=== PATIENT | male | born 1980 | race Caucasian/White ===

== ENCOUNTER → 2021-01-13 15:50 | Outpatient (BNVA) | payer OTHER, SELFPAY | PROVIDERS: PCP Family Medicine; Visit Provider Family Medicine | DX: Z13.6 Encounter for screening for cardiovascular disorders (principal); R03.0 Elevated blood-pressure reading, without diagnosis of hypertension; F33.1 Major depressive disorder, recurrent, moderate | CPT/HCPCS: 80053; 80061; 85025 ==

== ENCOUNTER → 2022-10-10 16:22 | Outpatient (BNVA) | payer OTHER, MEDICAID, SELFPAY | PROVIDERS: PCP Family Medicine; Visit Provider Emergency Medicine | DX: S61.412A Laceration without foreign body of left hand, initial encounter (principal); S61.419A Laceration without foreign body of unspecified hand, initial encounter; S69.90XA Unspecified injury of unspecified wrist, hand and finger(s), initial encounter; X58.XXXA Exposure to other specified factors, initial encounter | CPT/HCPCS: 73130 ==

== ENCOUNTER → 2022-11-12 08:39 | Outpatient (BNVA) | payer MEDICAID, SELFPAY | PROVIDERS: PCP Family Medicine; Visit Provider Family Medicine | DX: I10 Essential (primary) hypertension (principal); R53.83 Other fatigue | CPT/HCPCS: 80053; 80061; 82043; 84403; 84439; 84443; 85025 ==

== ENCOUNTER → 2023-05-20 10:53 | Outpatient (BNVA) | payer OTHER, MEDICAID, SELFPAY | PROVIDERS: PCP Family Medicine; Visit Provider Family Medicine | DX: R94.6 Abnormal results of thyroid function studies (principal); N52.8 Other male erectile dysfunction | CPT/HCPCS: 84403; 84439; 84443 ==

== ENCOUNTER → 2023-10-29 11:11 | Outpatient (BNVA) | payer OTHER, MEDICAID, SELFPAY | PROVIDERS: PCP Family Medicine; Visit Provider Student in an Organized Health Care Education/Training Program | DX: M16.11 Unilateral primary osteoarthritis, right hip | CPT/HCPCS: 73522 ==

== ENCOUNTER → 2023-12-31 08:33 | Outpatient (BNVA) | payer OTHER, MEDICAID, SELFPAY | PROVIDERS: PCP Family Medicine; Visit Provider Family Medicine | DX: Z86.39 Personal history of other endocrine, nutritional and metabolic disease (principal); I10 Essential (primary) hypertension | CPT/HCPCS: 80053; 80061; 84403; 84439; 84443; 85025; 86376 ==

== ENCOUNTER → 2024-03-06 10:45 | Outpatient (BNVA) | payer OTHER, MEDICAID, SELFPAY | PROVIDERS: PCP Family Medicine; Visit Provider Student in an Organized Health Care Education/Training Program | DX: M25.551 Pain in right hip (principal); M16.11 Unilateral primary osteoarthritis, right hip; M54.50 Low back pain, unspecified | CPT/HCPCS: 73502 ==

== ENCOUNTER → 2024-03-31 08:58 | Outpatient (BNVA) | payer OTHER, MEDICAID, SELFPAY | PROVIDERS: PCP Family Medicine; Referring Provider Student in an Organized Health Care Education/Training Program; Visit Provider Orthopaedic Surgery | DX: M54.50 Low back pain, unspecified (principal) | CPT/HCPCS: 72110 ==

== ENCOUNTER 2024-04-02 08:33 | Outpatient (CLI) | payer MEDICAID, SELFPAY ==
--- NOTE | 2024-04-02 08:45 | MR_ITS ---
WS: [id number] MRI LUMBAR SPINE NONCONTRAST TECHNIQUE: Sagittal T1, T2 and STIR imaging. Axial T1 and T2 imaging. CLINICAL INFORMATION: lumbar pain COMPARISON: None. FINDINGS: 6 nonrib-bearing lumbar vertebral bodies labeled L1-L6 for the purposes of this dictation.. Counting performed from the craniocervical junction. Mild lumbar curve. No acute compression. Pedicle screw fixation L5-L6 with laminectomy defects. Prominent central disc protrusion C5-6 with slight indentation cervical cord. Mild to moderate centra l canal stenosis. Recommend cervical spine MRI. L1-L2: Shallow central disc protrusion. Spinal canal and foramen are patent. L2-L3: Mild facet arthropathy. Spinal canal and foramen are patent. L3-L4: Slight retrolisthesis. Mild annular bulging with slight effacement of the ventral thecal sac. Slight impingement traversing L4 nerve roots bilaterally. Moderate facet arthropathy. Mild bilateral foraminal narrowing. L4-L5: Mild annular bulging with mild to moderate central canal stenosis. Impingement subarticular re cess bilaterally. Moderate facet arthropathy. Slight retrolisthesis. Mild bilateral foraminal narrowi ng L5- L6: Prior postoperative changes pedicle screw fixation with laminectomy defects. Spinal canal and foramen are patent. Clustering of the cauda equina nerve rootlets at this level can be seen with olamide chnoiditis. L6-S1: Mild annular bulging. Slight effacement of the ventral thecal sac. Moderate facet arthropathy. Spinal canal and foramen are patent MR/MR lumbar spine wo con* [id number] IMPRESSION: 1. 6 nonrib-bearing lumbar vertebral bodies labeled 1 through 6 for the purpos es of this dictation. Counting is performed from the craniocervical junction. R ecommend plain film correlation prior to surgical intervention. 2. Prominent central disc protrusion C5-6 on the school age teacher imaging with impingemen t on the cervical cord. Mild to moderate central canal stenosis. Recommend furt her evaluation with cervical spine MRI. 3. Pedicle screw fixation laminectomy defects L5 and L6. Spinal canal and fora men are patent at this level. 4. Clumping of the cauda equina nerve rootlets at L5 suspicious for arachnoidi tis. 5. Mild to moderate central canal stenosis L4-5 due to slight retrolisthesis i n combination with disc bulging and facet arthropathy ligamentum flavum hypertr ophy. Mild bilateral L4-5 foraminal narrowing with slight contact of the exitin g L4 nerve roots. 6. Mild annular bulge L3-4 with slight retrolisthesis. Mild bilateral foramina l narrowing at this level. 7. Shallow central disc bulging L1-2.
== END 2024-04-02 08:34 | disposition home or self-care (01) ==
LOC: RAD 08:34
PROVIDERS: PCP Family Medicine; Visit Provider Orthopaedic Surgery
DX: M50.222 Other cervical disc displacement at C5-C6 level (principal); M47.896 Other spondylosis, lumbar region; M48.061 Spinal stenosis, lumbar region without neurogenic claudication; M96.1 Postlaminectomy syndrome, not elsewhere classified; G83.4 Cauda equina syndrome; M47.898 Other spondylosis, sacral and sacrococcygeal region
CPT/HCPCS: 72148

== ENCOUNTER → 2024-04-03 08:15 | Outpatient (BNVA) | payer MEDICAID, SELFPAY | PROVIDERS: PCP Family Medicine; Visit Provider Student in an Organized Health Care Education/Training Program | DX: M16.11 Unilateral primary osteoarthritis, right hip (principal) | CPT/HCPCS: 77002 ==

== ENCOUNTER → 2024-06-19 08:38 | Outpatient (BNVA) | payer MEDICAID, SELFPAY | PROVIDERS: PCP Family Medicine; Visit Provider Family Medicine | DX: R79.89 Other specified abnormal findings of blood chemistry (principal) | CPT/HCPCS: 80048; 84403 ==

== ENCOUNTER 2024-08-10 11:32 | Outpatient (CLI) | payer MEDICAID, SELFPAY | END 2024-08-10 11:33 | disposition home or self-care (01) | LOC: SLEEP 11:37 | PROVIDERS: PCP Family Medicine; Visit Provider Family Medicine | DX: G47.33 Obstructive sleep apnea (adult) (pediatric) (principal); G47.36 Sleep related hypoventilation in conditions classified elsewhere | CPT/HCPCS: G0399 ==

== ENCOUNTER → 2024-09-04 11:34 | Outpatient (BNVA) | payer MEDICAID, SELFPAY | PROVIDERS: PCP Family Medicine; Visit Provider Student in an Organized Health Care Education/Training Program | DX: M16.11 Unilateral primary osteoarthritis, right hip (principal) | CPT/HCPCS: 77002 ==

== ENCOUNTER → 2024-12-09 08:04 | Outpatient (BNVA) | payer MEDICAID, SELFPAY | PROVIDERS: PCP Family Medicine; Visit Provider Student in an Organized Health Care Education/Training Program | DX: M16.11 Unilateral primary osteoarthritis, right hip (principal); Z01.818 Encounter for other preprocedural examination | CPT/HCPCS: 36415; 73502; 80053; 81003; 85025 ==

== ENCOUNTER 2024-12-31 08:01 | Outpatient (CLI) | payer MEDICAID, SELFPAY ==
--- NOTE | 2024-12-31 08:00 | CT_ITS ---
WS: [id number] CT RIGHT hip for LUDMILA procedure HISTORY: pre operative scan- right DEEDEE Date: 12/31/2024 8:19 AM COMPARISON: None available. TECHNIQUE: Protocol for LUDMILA total hip replacement has been obtained. This includes axial imaging from the hip joint through the knee joint. DLP: [id number] FINDINGS: Postoperative changes lower lumbar spine. Advanced degenerative arthritis RIGHT hip with joint space narrowing. Hypertrophic changes about the acetabulum and femoral head. Associated sclerosis. Moderate degenerative narrowing of the LEFT hip. CT/CT hip RT [facility] [id number] IMPRESSION: CT imaging provided for [facility] robotic total hip replacement.
--- NOTE | 2024-12-31 13:34 | MR_ITS ---
WS: [id number] MRI BRAIN WITH HIGH-RESOLUTION IMAGING THROUGH THE INTERNAL AUDITORY CANALS WITHOUT AND WITH CONTRAST HISTORY: SENSORINEURAL HEARING LOSS,BILATERAL COMPARISON: None available. TECHNIQUE: Multiplanar, multisequence imaging is performed through the brain. Additional 3 mm imaging performed in multiple planes through the internal auditory canal. Postcontrast imaging with 20 ml's of MultiHance. No acute intracranial hemorrhage, midline shift, edema or mass effect. No prior infarct. No significant volume loss or atrophy. No hippocampal atrophy. Ventricles and extra-axial spaces are normal. Mild ectopia of the cerebellar tonsils. Tiny nonenhancing focus in the central pituitary gland measures 2.2 mm. Suspect pituitary microadenoma. Internal and external auditory canals: Unremarkable. Cranial nerves VII and VIII complexes: Unremarkable. No enhancement or mass. Cerebellopontine angles: Normal. Paranasal sinuses: Normal. Mastoid air cells: Normal. Calvarium and scalp: Normal. Visualized nightmute of Velázquez and dural venous sinuses demonstrate no abnormality. MR/MR iac's wo/w con* [id number] IMPRESSION: 1. No mass at the cerebellopontine angle. No mass or signal abnormality along the internal auditory canals. 2. No cerebral or cerebellar atrophy or prior infarct. 3. Highly suspicious for 2.2 mm pituitary microadenoma. Consider follow-up ded icated MRI pituitary gland.
[2024-12-31] MEDS: gadobenate dimeglumine 20 mL vial IV (14:21)
== END 2024-12-31 08:02 | disposition home or self-care (01) ==
LOC: RAD 08:01
PROVIDERS: PCP Family Medicine; Visit Provider Nurse Practitioner Family
DX: H90.3 Sensorineural hearing loss, bilateral (principal)
CPT/HCPCS: 70553; 73700

== ENCOUNTER → 2025-01-04 05:52 | Day surgery (SDC) | payer MEDICAID, SELFPAY ==
[2025-01-04 06:09] VITALS: BP 119/85; PULSE 77; RESP 18; TEMP 36.6; O2SAT 97
[2025-01-04 06:13] VITALS: BMI 31.4
[2025-01-04] MEDS: acetaminophen 1,000 MG/100 ML PIGGYBACK 400 MG IV (06:35)
[2025-01-04 06:41] LABS: Hematocrit 43.5 % (37-53); Hemoglobin 15.30 g/dL (11.27-16.99); Mean Corpuscular HGB Conc 35.2 g/dL (30-55); Mean Corpuscular Hemoglobin 30.9 pg (27-33); Mean Corpuscular Volume 87.9 fl (82-101); Nucleated Red Blood Cells % 0 %; Platelet Count 243 10^3/cmm (157-399); Red Blood Count 4.95 10^6/uL (3.85-5.65); White Blood Count 7.79 10^3/uL (3.29-11.43)
[2025-01-04 06:50] LABS: Anion Gap 15.8 (5-19); Blood Urea Nitrogen 17 mg/dL (6-20); Calcium 8.9 mg/dL (8.5-10.5); Carbon Dioxide 23 mmol/L (22-29); Chloride 108 mmol/L (98-107); Creatinine Clr Calc Pharmacy 143.3387; Glucose 99 mg/dL (65-115); Osmolality Calculated 298 mOsm/kg (285-295); Potassium 3.8 mmol/L (3.5-5.1); Sodium 143 mmol/L (136-145)
--- NOTE | 2025-01-04 07:07 | P.MISC_ITS ---
Miscellaneous Note Purpose of Documentation: Patient at this point in time seen evaluated by anesthesia this morning. Barbara fabian does take kratom at baseline. He took it last night. After discussion with anesthesia and possible increased risks associated with kratom they have elected to proceed to hold off on the surgery today and patient will work with his primary on tapering off of this and then proceed with the total hip arthroplasty. At this point in time my office will be in touch with him on the appropriate timeline of discontinuing the medication completely prior to surgical intervention as well as with the next rescheduled planned date will be. Patient at this point in time understands and agrees with current plan. All questions answered at this time. Yonathan Short, DO Orthopedic surgery
--- NOTE | 2025-01-04 07:07 | PC.NURSE ---
0707: Pt prepped for surgery as per normal. Patient spoke with anesthesia regarding the side effects of an herbal supplement he takes several times daily. patient opted to to leave and then reschedule due to possible interactions with other medications used while in procedure
--- NOTE | 2025-01-04 08:04 | P.MISC_ITS ---
Miscellaneous Note Note: Patient states he uses Kratom approximately every 6 to 8 8 hrs. Last use was previous night. Review of kratom shows no official guidelines regarding perioperative use given its rarity. A few case reports in surgical patients using Kratom have demonstrated resistance to anesthestics, difficult p ostoperative pain control, refractory intra-operative hypertension requiring nicardipine or esmolol infusions, as well as emergence delirium. Recommendations from case reports included using regional anesthesia when able, mulitmodal pain control, and holding or tapering off of kratom pre-operativeley. After discussion with patient regarding possible risks, joint decision was made to reschedule surgery to allow for pre-operative kratom cessation. I am unable to find appropriate recommendations regarding when to hold the kratom, so will refer to patient's PCP for further management to take into consideration the possibilty of withdrawal symptoms as well.
== END ==
LOC: OR 05:53
PROVIDERS: Physician Assistant; PCP Family Medicine; Visit Provider Student in an Organized Health Care Education/Training Program
DX: Z53.8 Procedure and treatment not carried out for other reasons (principal)
CPT/HCPCS: 36415; 80048; 85025; 86850; 86900; J0131; J1885; J2250; J2704; J7030; J9999

== ENCOUNTER → 2025-02-03 12:18 | Outpatient (BNVA) | payer MEDICAID, SELFPAY | PROVIDERS: PCP Family Medicine; Visit Provider Student in an Organized Health Care Education/Training Program | DX: Z01.818 Encounter for other preprocedural examination (principal) | CPT/HCPCS: 36415; 80053; 81001; 85025 ==

== ENCOUNTER 2025-02-18 14:14 | Observation (INO) | payer MEDICAID, SELFPAY ==
[2025-02-18] VITALS (28 sets, daily range): BP systolic 87–144; BP diastolic 46–88; PULSE 68–92; RESP 12–22; TEMP 36.2–37.2; O2SAT 94–99; BMI 31.4
--- NOTE | 2025-02-18 06:41 | ANES.PREANE2 ---
Pre-Anesthetic Assessment Height/Weight: Height 1.8 m Operation Date: 02/18/25 07:00 Proposed Procedures p Tanner Robot Anterior Hip Arthroplasty(Right) - Yonathan Short DO Familial anesthetic complications: none Was Beta Bran taken within 24 hours: Yes Was Clonidine taken within 24 hours: N/A Last intake: > 8 hrs Social No alcohol and No tobacco Exam alert, oriented x 3, clear to auscultation bilaterally and regular rate & rhythm Airway Comments: Comments: love CV/HEM Hypertension Metabolic Thyroid Disease Anesthetic Plan ASA status: 2 Anesthesia: Regional (specify below) Risk of > 500 ml blood loss (7ml/kg in children): No Medications/Allergies Home Medications ?Medication ?Instructions ?Recorded ?Confirmed ?Last Taken ?Type lisinopril 10 mg tablet 10 mg PO DAILY #30 tabs 06/18/24 02/17/25 02/17/25 Rx propranolol 20 mg tablet 20 mg PO BID #60 tabs 06/18/24 02/18/25 02/18/25 Rx trazodone 50 mg tablet 25 mg (1/2 x 50 mg) PO DAILY PRN 06/18/24 02/17/25 02/16/25 Rx insomnia #30 tabs Auto CPAP 6-14 cm mmHg setting #1 ea 08/17/24 02/03/25 Unknown Rx with mask, tubing and supplies tirzepatide 5 mg/0.5 mL 5 mg SUBCUT Q7D 09/04/24 02/17/25 02/01/25 History subcutaneous pen injector (Julian) syringe with needle 1 mL 21 gauge #100 ea 10/07/24 02/03/25 Unknown Rx x 1 syringe with needle, safety 1 mL #100 ea 10/08/24 02/03/25 Unknown Rx 23 gauge x 1 bupropion HCl 300 mg 24 hr tablet, 300 mg PO DAILY #30 tabs 12/10/24 02/18/25 02/18/25 Rx extended release melatonin 10 mg/mL oral drops 10 mg PO QPM 01/01/25 02/17/25 01/03/25 History sildenafil (pulm.hypertension) 20 20 mg PO PRN 01/01/25 02/17/25 12/02/24 History mg tablet testosterone cypionate 200 mg/mL 150 mg (0.75 mL) SUBCUT .q 14 #2 mL 01/11/25 02/17/25 02/01/25 Rx intramuscular oil (Depo-Testosterone) methocarbamol 750 mg tablet 750 mg PO TID PRN Muscle Pain 02/17/25 02/17/25 Unknown History Allergies Allergy/AdvReac Type Severity Reaction Status Date / Time No Known Allergies Allergy Verified 02/17/25 11:51 [facility] Anesthesia Medical History Alcohol use disorder Subclinical hypothyroidism Chronic neck pain Spinal stenosis at L4-L5 level Surgical History History of lumbar spinal fusion In 2017 - at [facility] Family History Mother Diabetes Grandmother , father's side Stroke Father Asthma Emphysema of lung Brother Cancer, Onset Age: 40 lung Family/Other Cancer breast cancer Social History Smoking and tobacco/nicotine status: current some day tobacco/nicotine user pipe Second hand smoke exposure: No Alcohol intake: current Alcohol intake frequency: 0-2 Drinks per Day Alcohol type: hard liquor Substance/Drug Use: current Substance/Drug use frequency: other Other substance/drug use details: occasional use Adopted: No Caregiver/support person: No Lives independently: Yes Housing: House Marital status: Single Number of children: 0 Highest education level completed: Bachelor's Degree service: No Current occupational status: unemployed 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
[2025-02-18] MEDS: acetaminophen 1,000 MG/100 ML PIGGYBACK 400 MG IV ×2 (06:43→14:50)
--- NOTE | 2025-02-18 06:53 | W.PM.OPSUD ---
Surgery/Procedure H&P Update DATE OF PROCEDURE: February 18, 2025 DATE H&P PERFORMED: 02/03/25 H&P UPDATE INFORMATION: I have reviewed H&P completed within last 30 days, I have examined patient prior to procedure and No changes to prior documentation PREOP DIAGNOSIS: Right hip degenerative joint disease PRIMARY INDICATION FOR PROCEDURE: Right hip degenerative joint disease PLANNED PROCEDURE: Operation Date: 02/18/25 07:00 Proposed Procedures p Tanner Robot Anterior Hip Arthroplasty(Right) - Yonathan Short DO
[2025-02-18] MEDS: ceFAZolin 2,000 MG in sodium chloride 0.9% (plus) 50 ML 100 MG IV ×2 (07:01→15:35)
[2025-02-18 07:09] LABS: Hematocrit 43.7 % (37-53); Hemoglobin 15.30 g/dL (11.27-16.99); Mean Corpuscular HGB Conc 35.0 g/dL (30-55); Mean Corpuscular Hemoglobin 31.0 pg (27-33); Mean Corpuscular Volume 88.6 fl (82-101); Nucleated Red Blood Cells % 0 %; Platelet Count 233 10^3/cmm (157-399); Red Blood Count 4.93 10^6/uL (3.85-5.65); White Blood Count 7.29 10^3/uL (3.29-11.43)
[2025-02-18] MEDS: tranexamic acid 1,000 MG/100 ML PREMIX 600 MG IV ×2 (07:15→15:37)
[2025-02-18 07:26] LABS: Anion Gap 18.9 (5-19); Blood Urea Nitrogen 16 mg/dL (6-20); Calcium 9.1 mg/dL (8.5-10.5); Carbon Dioxide 23 mmol/L (22-29); Chloride 102 mmol/L (98-107); Creatinine Clr Calc Pharmacy 162.1092; Glucose 114 mg/dL (65-115); Osmolality Calculated 292 mOsm/kg (285-295); Potassium 3.9 mmol/L (3.5-5.1); Sodium 140 mmol/L (136-145)
[2025-02-18] MEDS: lidocaine-epi 1% PF 1:200,000 30 mL SDV INJECTION (07:56)
--- NOTE | 2025-02-18 08:06 | SUR.OPER ---
Called life partner and notified her of surgical progress.
--- NOTE | 2025-02-18 10:59 | XR_ITS ---
WS: [id number] Exam: XR hip RT 2-3V wo/w pel* [id number] Date/Time of Exam: 02/18/2025 10:59 AM Reason For Exam: post op DEEDEE Comparison 12/09/2024. RIGHT total hip prosthesis has been placed and is in satisfactory position. Postop changes in the adjacent soft tissues. XR/XR hip RT 2-3V wo/w pel* [id number] IMPRESSION: 1. RIGHT total hip replacement in satisfactory position.
--- NOTE | 2025-02-18 10:59 | P.BOP_ITS ---
Date of Procedure: [February 18, 2025] Surgeon: [Dr. Short DO] Electronics Instructor(s): [Jose Short PA-C] Procedure(s) performed: [Right total hip arthroplasty with Tanner robotic assist (anterior approach)] Findings of the procedure(s): [Right hip degenerative joint disease. Procedure went well and is planned.] Estimated blood loss: [300 mL] Specimen(s) removed: [Acetabular shavings and femoral head] Post-operative diagnosis: [Right hip degenerative joint disease.]
--- NOTE | 2025-02-18 11:02 | P.PCN_ITS ---
PACU note Narrative: Patient is a 45-year-old male that just underwent a right total hip arthroplasty. Pt transferred to PACU in stable condition. Dressing is dry. pt is awake and alert. Distal pulses are palpable toes are warm and well- perfused. Cap refill is normal and under 2 seconds. Patient is still very sl eepy from anesthesia and unable to perform any further motor or sensory assessment. Pain is controlled. Exam: somnolent, arousable Disposition: admitted
--- NOTE | 2025-02-18 14:42 | ANE.PACU2 ---
Inpatient post-anesthesia follow up: Airway intact: Yes Vital signs: Temperature 97.7 F Pulse Rate 78 Respiratory Rate 16 Blood Pressure 114/78 Pulse Oximetry 95 Oxygen Delivery Me thod Room Air Oxygen Flow Rate 8 Fraction of Inspir ed Oxygen Hydration adequate: Yes Nausea and vomiting: No Pain level: 1 Mental status: Baseline
[2025-02-18] MEDS: chlorhexidine gluconate 0.12% Btl 473 mL 30 ML MUCOUS MEM ×2 (14:51→17:00)
[2025-02-18] MEDS: oxyCODONE 5 mg IR Tab/Cap PO ×3 (14:53→23:15)
--- NOTE | 2025-02-18 16:03 | PM.CONSULT ---
Providers/Reason For Consult Consulting Physician/Specialty*: Garrett Posadas MD Reason for Consult*: Medical management Attending Physician: Yonathan Short DO Primary Care Provider: Joni Carrillo MD History of Present Illness History of Present Illness As per the patient and the retrospective notes Mike Marrufo is a 45 year old male with previous history of subclinical hypothyroidism, hypertension, chronic neck pain, spinal stenosis on testosterone supplements, bupropion and propranolol for anxiety disorder, underwent right hip hemiarthroplasty and orthopedic team consulted for further medical management based on his previous history. The patient currently reported that he is doing well he has been on lisinopril for his high blood pressure but currently did not take it considering he had a surgery confirmed his rest of the medications. There are no active symptoms apart from mild dull ache at the right hip site. Otherwise rest of the review of system is unremarkable Review of Systems General: Reports: 10 or more systems reviewed and unremarkable except in HPI and below Medications/Allergies Home Medications ?Medication ?Instructions ?Recorded ?Confirmed ?Last Taken ?Type lisinopril 10 mg tablet 10 mg PO DAILY #30 tabs 06/18/24 02/17/25 02/17/25 Rx propranolol 20 mg tablet 20 mg PO BID #60 tabs 06/18/24 02/18/25 02/18/25 Rx trazodone 50 mg tablet 25 mg (1/2 x 50 mg) PO DAILY PRN 06/18/24 02/17/25 02/16/25 Rx insomnia #30 tabs Auto CPAP 6-14 cm mmHg setting #1 ea 08/17/24 02/18/25 Unknown Rx with mask, tubing and supplies tirzepatide 5 mg/0.5 mL 5 mg SUBCUT Q7D 09/04/24 02/17/25 02/01/25 History subcutaneous pen injector (Isaelunjuan carlos) syringe with needle 1 mL 21 gauge #100 ea 10/07/24 02/18/25 Unknown Rx x 1 syringe with needle, safety 1 mL #100 ea 10/08/24 02/18/25 Unknown Rx 23 gauge x 1 bupropion HCl 300 mg 24 hr tablet, 300 mg PO DAILY #30 tabs 12/10/24 02/18/25 02/18/25 Rx extended release melatonin 10 mg/mL oral drops 10 mg PO QPM 01/01/25 02/17/25 01/03/25 History sildenafil (pulm.hypertension) 20 20 mg PO PRN 01/01/25 02/17/25 12/02/24 History mg tablet testosterone cypionate 200 mg/mL 150 mg (0.75 mL) SUBCUT .q 14 #2 mL 01/11/25 02/17/25 02/01/25 Rx intramuscular oil (Depo-Testosterone) methocarbamol 750 mg tablet 750 mg PO TID PRN Muscle Pain 02/17/25 02/17/25 Unknown History Allergies Allergy/AdvReac Type Severity Reaction Status Date / Time No Known Allergies Allergy Verified 02/17/25 11:51 Current Medications Generic Name Dose Route Start Last Admin Trade Name Freq PRN Reason Stop Dose Admin Chlorhexidine Gluconate 30 ml 02/18/25 14:26 02/18/25 14:51 Chlorhexidine Gluconate 0.12% Btl 473 Ml MUCOUS MEM 30 ml QID CARIDAD Administration Acetaminophen 1,000 mg in 100 mls @ 400 mls/hr 02/18/25 14:26 02/18/25 15:26 Acetaminophen IV 02/19/25 06:40 Infused Q8H CARIDAD Infusion Cefazolin Sodium 2,000 mg/ 50 mls @ 100 mls/hr 02/18/25 15:00 02/18/25 15:36 Sodium Chloride IV 02/19/25 07:29 0 mls/hr Q8H CARIDAD Infusion Protocol Ketorolac Tromethamine 15 mg 02/18/25 14:26 02/18/25 14:52 Ketorolac 30 Mg/Ml Inj IVP 15 mg Q6H PRN Administration MODERATE TO SEVERE PAIN Oxycodone HCl 5 mg 02/18/25 14:26 02/18/25 14:53 Oxycodone 5 Mg Ir Tab/Cap PO 5 mg Q4H PRN Administration MODERATE PAIN PFSH Acute PFSH: Medical History Alcohol use disorder Subclinical hypothyroidism Chronic neck pain Spinal stenosis at L4-L5 level Surgical History (Updated 02/18/25 @ 18:07 by Garrett Posadas MD) History of lumbar spinal fusion In 2017 - at [facility] Family History Mother Diabetes Grandmother , father's side Stroke Father Asthma Emphysema of lung Brother Cancer, Onset Age: 40 lung Family/Other Cancer breast cancer Social History Smoking and tobacco/nicotine status: current some day tobacco/nicotine user pipe Second hand smoke exposure: No Alcohol intake: current Alcohol intake frequency: 0-2 Drinks per Day Alcohol type: hard liquor Substance/Drug Use: current Substance/Drug use frequency: other Other substance/drug use details: occasional use Adopted: No Caregiver/support person: No Lives independently: Yes Housing: House Marital status: Single Number of children: 0 Highest education level completed: Bachelor's Degree service: No Current occupational status: unemployed 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 Vitals/I&O/Wt Last Vital Signs Temp 97.7 F 02/18/25 14:20 Pulse 78 02/18/25 14:20 Resp 17 02/18/25 14:53 BP 114/78 02/18/25 14:20 Pulse Ox 95 02/18/25 14:20 O2 Del Method Room Air 02/18/25 15:01 O2 Flow Rate 8 02/18/25 11:00 02/18/25 02/18/25 02/18/25 06:59 14:59 22:59 Intake Total 2400 / 2400 101.667 / 2501.667 Output Total 600 / 600 Balance 1800 / 1800 101.667 / 1901.667 Weight last 48 hrs Weight 102.058 kg Weight 102.058 kg Physical Exam Narrative: General: Alert and oriented, lying comfortably without any distress, having right-sided hip arthroplasty s/p dressing and an attached device with minor suction for wound healing/Chloé-7 Andujar device HEENT: Normocephalic, atraumatic, grossly unremarkable exam Cardio: normal rate rhythm, normal S1-S2 without any murmurs, rubs, or gallops and JVD normal Respiratory: normal vascular breathing on auscultation without any wheezes, stridor, rhonchi GI: Abdomen soft, nontender, nondistended, normoactive bowel sounds present all 4 quadrants, Neuro: intact cranial nerves motor and sensory and cerebellar/coordination function without any focal neurological deficit Behavior: Appropriate and cooperative Extremities: Mild edema of the right leg status post right hemispheric arthroplasty however peripheral pulses are adequate and good adequate perfusion appreciated. Urinary Catheter Management: Koenig: Cath Placed During This Visit: yes Urinary Catheter Date of Insertion: 02/18/25 Urinary Catheter Time of Insertion: 07:20 Data 02/18/25 06:40 02/18/25 06:40 A&P Assessment and plan 1. Status post hemiarthroplasty of right hip: Continue management with adequate wound care and OT PT Primary management per primary surgery team Adequate analgesia to continue Incentive spirometry Early mobilization is recommended with right hip precautions Monitor vitals 2. WEST (generalized anxiety disorder): Patient taking bupropion 300 mg extended release daily along with propranolol 20 mg twice daily Considered patient s/p right hemiarthroplasty, can continue with bupropion 300 mg and to hold propranolol since the patient blood pressure is on the softer side and there is a risk of hypotension 3. Benign essential HTN: Hold lisinopril and propranolol at the moment Continue gentle hydration status post surgery since the blood pressure is on the normal side 4. Subclinical hypothyroidism: Stable patient is not taking any medications 5. Low testosterone in male: Currently hold sildenafil/testosterone Can resume at the time of discharge based on his home medications reconciliation PDMP PDMP Reviewed: Not Reviewed Consult Attestations Medical Necessity Statement: Patient will stay overnight as per the discretion of the primary team status post right hip hemiarthroplasty Time Spent in Patient Care: 16 - 35 minutes Other Attestations: Other Attestations: Patient condition has been discussed at length with the patient/family, I have independently reviewed the chart labs imaging/diagnostics/EKG. the goals of care and code status with the patient/family/NOK/legal medical device sales representative, and documented accordingly. The management has been done according to the current clinical condition with respect to patient goals of care and based on recommendations/guidelines. The patient/family has been informed about the current condition and further plan of care. Agreed with the plan of care and understood without any language barrier. Every effort was made to ensure accuracy of package handler. Any obvious errors or omissions should be clarified with the author of the document. Coding Level of Care Code Acute Code for Chg Fwd Diagnoses Status post hemiarthroplasty of right hip Z96.641 WEST (generalized anxiety disorder) F41.1 Benign essential HTN I10 Subclinical hypothyroidism E03.8 Low testosterone in male R79.89
--- NOTE | 2025-02-18 16:10 | P.OP_ITS ---
Operative Report Date of procedure: February 18, 2025 Surgeon: Yonathan Short DO Labourers: Jose Short PA-C: PA was necessary for assistance in this case with leg positioning assistance with hip reductions, retraction and protection of neurovascular structures as well as assistance in implantation, assistance and wound closure and dressing application. Procedure: Preoperative diagnosis: Right hip degenerative joint disease Post-op diagnosis: Same Procedure done: Right total hip arthroplasty?Tanner robotic assisted?anterior approach Implants: Cotton Plant Trident acetabular shell size 54 mm alpha code E Deshawn acetabular screw 30 mm Deshawn acetabular screw 15 mm Cotton Plant insignia high offset hip stem size 6 Trident 0 degree polyethylene 36 degree inner diameter alpha code E 36 mm femoral head ceramic -5mm Surgeon: Yonathan Short DO Anesthesia: Other (Spinal) Estimated blood loss: 300 mL IV fluids: 2350 mL Complications: None Findings: See operative report narrative Condition: stable Disposition: floor Brief History: Patient is a 45-year-old female presented to my outpatient office setting findings consistent with pjgw-[id number] arthritis advanced degenerative joint dis ease of the right hip.? We talked about treatment options as far as nonoperative and operative intervention. Pt has failed conservative treatment.? Patient's right hip degenerative joint disease has been in significant pain with decreased ROM.? we talked about treatment options at this point time pt understands the risk benefits complication alternatives surgical nonsurgical treatment options.? Patient understands the risk of surgery and agrees to proceed.? Patient has underwent a preoperative evaluation. Pt cleared for surical intervention. Pt understood and was agreeable to proceed with a right total hip arthroplasty consent was reviewed and signed with patient.?? All questions answered.? Patient will be admitted postoperatively. Procedure: Patient was seen evaluated in the preoperative holding area.? Consent was reviewed and signed with patient.? Correct operative extremity was then marked. ? All questions were answered at this time.? Once cleared by anesthesia used to brought back to the operative suite he then underwent anesthesia per the anesthesia department of a spinal anesthetic. The patient was administered tranexamic acid and preop?antibiotics, and placed in the supine position. All bony prominences were properly padded, securely fixed to the table, and administered?general?anesthetic. The patient was subsequently transferred from the hospital bed to the [place] table. Bilateral lower extremities were placed in the traction boots. The pelvis was well approximated against the perineal post.? Final timeout performed.? Patient received appropriate preoperative?antibiotics. Both hips were then prepped and draped in a normal orthopedic fashion.? Started with a small incision 2 fingerbreadths above the ASIS on the left iliac wing to place? pelvic arrays.? Small incision was made directly down to bone.? 3 pelvic pins were placed with excellent fixation.? The robotic array was secured to the nonoperative iliac wing using sterile technique. The extremity was then definitively draped in standard, sterile fashion.? The array was found to be visible by the robot. ?A standard??anterior supine approach was performed to the?operative hip joint. The skin was incised down to the tensor fascia bg muscle and fascia. Fascia was split longitudinally in line with its fibers. The tensor fascia bg muscle was retracted laterally. The appropriate retractors were placed superiorly. Lateral circumflex vessels were identified and appropriately ligated. The hip capsule was then identified.? Appropriate retractors were placed superiorly and inferiorly along the capsule directly onto bone.??That was split longitudinally up to the acetabular rim in line with the femoral neck. The femoral capsule was found to be significantly hypertrophic, thickened, and significantly fibrotic. The capsule was then elevated both superiorly and inferiorly down to the lesser trochanter as well as up towards the greater trochanter.? Tag stitches were applied with 0 Vicryl into the capsule.? Femoral check point was?then inserted and confirmed on the lateral trochanter proximal femur.? A distal marker?of a sterile EKG lead was placed into the distal femur for measurement of leg lengths.? Preoperative leg lengths were registered and confirmed at this point. Next the appropriate-sized neck cut was then performed after being measured with robotic assistance. Femoral head was removed atraumatically this was found to have significant degenerative changes and deformity with significant osteophyte formation.? Femoral head was found to be severely degenerated and flattening with, eburnated bone. Acetabulum was also inspected and was found to have peripheral osteophytes as well as no evidence of cartilage consistent with mlqt-km-ahjg arthritis.? Appropriate retractors were then placed in the?anterior and posterior wall.? The remaining labrum was then excised from the periphery of the acetabular rim. Pulvinar was excised.? At this point registration for the Tanner was performed on the acetabular side and confirmed. Once confirmed, any osteophytes able to be were removed. We planned 40 degrees of lateral opening and 20 degrees of?anteversion. At this point, we reamed and medialized to the inner wall of the acetabulum with a size?54?reamer for line to line fit.?The acetabulum was found to have good bleeding bone throughout.?? Reamer removed excellent bleeding bone circumferentially with sufficient?anterior and posterior wall. ?The definitive acetabular cup 54 mm was inserted and impacted under?Tanner guidance with the appropriate amount of?anteversion and lateral opening. It was then secured with 2x 6.5 mm cancellous screws in appropriate safe zone position.? I subsquently drilled measured and place appropriate length acetabular screws which measured 30 mm and 15 mm.? These had excellent fixation final x-rays were taken of the acetabular work and showed a seated and well fixed acetabular cup with appropriate position acetabular screws.? ?Next a 36-mm X3 neutral liner was impacted into the?acetabular shell and secured. Hip was then irrigated with copious amounts of irrigation. At this point, the remaining femoral releases were then performed allowing the adequate mobilization of the?right?femur.? Traction was confirmed to being off to the right lower extremity and the femur was then externally rotated, extended, and adducted giving adequate exposure of the proximal femur in the surgical wound. Box cut was then used to enter the intramedullary canal of the?femur. Canal finder was placed down the canal of the?operative femur. Appropriate-sized broaches from a size 0 up to a size 6were impacted down the operative femoral canal with the appropriate amount of?anteversion.? X-rays were taken of the lateral compartment of the knee in good plane down the canal lateral imaging. A multiple trials were attempted and it was found?that-5mm neck was found to be most appropriate for a soft tissue tensioning offset, stability and the leg lengths?that was confirmed with Tanner. ?Stability was then assessed and excellent stability with patient external rotation of greater?than 90 degrees and traction with no evidence of hip instability.? Appropriate tension noted of the soft tissues. At this point, the hip was relocated.?Tanner guidance was again used to confirm appropriate leg lengths.? patient had excellent stability and excellent soft tissue tensioning as well as this was mapped with pt preoperative planning given.? Operative hip was then re-dislocated using a bone hook. All trials were then removed from the?operative femur. Adequate exposure was then once again obtained. The trials were removed. The definitive Cotton Plant insignia high offset size 6 femur stem was impacted down the?femoral canal with the appropriate amount of?anteversion. The appropriate sized head 36 mm ceramic -5 mm was impacted onto the trunnion, and the?operative?hip was then relocated with traction and internal rotation. Final measurements were obtained on Tanner confirming leg lengths and offset.? Once again hip stability was assessed and found to have excellent stability and appropriate soft tissue tensioning.? Hip was irrigated with copious amounts of irrigation.? Vancomycin powder was placed within the wound bed for added infection prophylaxis.? The superior and inferior leaflets of the capsule were then closed with Ethibond suture.? Vicryl tag stitches were removed.? The superficial layer of the tensor fascia gb fascia was closed using 0 stratafix suture in a running fashion.? Subcutaneous tissues were closed with running 3-0 Stratafix, skin was closed with 4-0 monocryl.?Surgical Prineo glue and steri strips were?applied and covered with a gregro dressing to the operative side.?The incision on the non-operative side for the robotic array was irrigated and closed with layered fashion of 0 Vicryl, 2-0 Vicryl and running Monocryl suture and surgical glue and covered with Silverlon. ?The patient was subsequently awoken per Anesthesia and transferred to PACU in satisfactory condition. ?Leg lengths and rotational profile were found to be appropriate. ? DISPOSITION: The patient will be admitted to the hospital for initiation of DVT prophylaxis, physical therapy, pain control. The patient is to weight bear as tolerated.?Anterior hip precautions, postoperative?antibiotics,?postoperative TXA and Eliquis?for DVT prophylaxis.? Patient will receive appropriate discharge instructions as well as pain medication postoperatively and will follow up in my office in 2 weeks.? Patient with work with PT/OT.? Internal medicine will be consulted for medical management
[2025-02-18] MEDS: mupirocin oint 22 gm 1 APPLIC NASAL (16:53)
[2025-02-18] MEDS: calcium carb-vit d 600mg/400unit 1 Tablet 1 EACH PO (16:53)
[2025-02-18] MEDS: MELATONIN 3 MG TABLET PO (23:16)
[2025-02-18] MEDS: ceFAZolin 2,000 MG in sodium chloride 0.9% (plus) 50 ML 50 MG IV (23:17)
[2025-02-18] MEDS: acetaminophen 1,000 MG/100 ML PIGGYBACK 50 MG IV (23:18)
[2025-02-19] VITALS (8 sets, daily range): BP systolic 113–127; BP diastolic 57–82; PULSE 82–100; RESP 17–18; TEMP 36.6–37.1; O2SAT 93–97
[2025-02-19] MEDS: chlorhexidine gluconate 0.12% Btl 473 mL 30 ML MUCOUS MEM ×2 (00:30→11:20)
[2025-02-19] MEDS: oxyCODONE 5 mg IR Tab/Cap PO ×3 (03:23→11:20)
[2025-02-19 05:11] LABS: Hematocrit 32.5 % (37-53); Hemoglobin 11.00 g/dL (11.27-16.99); Mean Corpuscular HGB Conc 33.8 g/dL (30-55); Mean Corpuscular Hemoglobin 31.3 pg (27-33); Mean Corpuscular Volume 92.6 fl (82-101); Nucleated Red Blood Cells % 0 %; Platelet Count 176 10^3/cmm (157-399); Red Blood Count 3.51 10^6/uL (3.85-5.65); White Blood Count 12.31 10^3/uL (3.29-11.43)
[2025-02-19 05:35] LABS: Anion Gap 16.1 (5-19); Blood Urea Nitrogen 14 mg/dL (6-20); Calcium 8.2 mg/dL (8.5-10.5); Carbon Dioxide 23 mmol/L (22-29); Chloride 105 mmol/L (98-107); Creatinine Clr Calc Pharmacy 162.1092; Glucose 130 mg/dL (65-115); Osmolality Calculated 292 mOsm/kg (285-295); Potassium 4.1 mmol/L (3.5-5.1); Sodium 140 mmol/L (136-145)
[2025-02-19] MEDS: multivitamin therapeutic Tablet 1 TAB PO (07:27)
[2025-02-19] MEDS: calcium carb-vit d 600mg/400unit 1 Tablet 1 EACH PO (07:28)
[2025-02-19] MEDS: sennosides-docusate Tablet 2 TAB PO (07:28)
[2025-02-19] MEDS: APIXABAN 2.5 MG TABLET PO (07:28)
[2025-02-19] MEDS: acetaminophen 1,000 MG/100 ML PIGGYBACK 50 MG IV (07:28)
[2025-02-19] MEDS: ceFAZolin 2,000 MG in sodium chloride 0.9% (plus) 50 ML 50 MG IV (07:51)
--- NOTE | 2025-02-19 10:31 | PM.MISC ---
Miscellaneous Note Purpose of Documentation: patient s/p right total hip arthroplasty, follow up note for medical management: Vitals and labs reviewed: Note: Vitals and labs reviewed: patient to continue on the current medical management hold anti HTN at the moment considering pt BP is in the normal range cont bupropion 300 mg extended release daily as inpatient rest of the home medications to hold as inpatient and can be resumed at the time of discharge. sign off feel free to contact/consult in case of further medical concerns/queries. thank you for involving in the care of the bradsean
--- OUTSIDE RECORDS SUMMARY | 2025-02-19 11:46 | XMS_ITS | Encounter Summary ---
Author Organization [facility] Address [address] [place] [address] Care Team Providers Care Rock Splitter Name Role Phone Cole Bocanegra DO Primary Care Provider + Reason for Referral * Outpatient Services (Routine) - Closed Specialty Diagnoses / Procedures Referred By Jass montes de oca Referred To Contact Diagnoses Lumbosacral radiculitis Procedures XR FLUORO NEEDLE GUIDANCE Surinder Beasley MD Phone: tel: fax: Referral ID Status Reason Start Date Expiration Date Visits Re quested Visits Authorized [id number] Closed 01/30/2016 03/01/2017 1 1 Encounter Details Date Type Department Care Team (Late st Contact Info) Description 01/30/2016 Ancillary Orders [facility] Pain Management Procedures [address] [address] [place] [id number] [place] [address] [facility] [address] [place] [address] Lumbosacral radiculitis (Primary Dx) Social History Tobacco Use Types Packs/Day Years Used Date Smoking Tobacco: Never Smokeless Tobacco: Never Alcohol Use Standard Drinks/Week Comments No 0 (1 standard drink = 0.6 oz pur e alcohol) Sex and Gender Information Value Date Recorded Sex Assigned at Not on file 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 Exam was auto-finalized. Surinder Beasley MD DIAGNOSTIC IMAGING ORDERABLES Final Result documented in this encounter Visit Diagnoses Diagnosis Lumbosacral radiculitis- Primary Thoracic or lumbosacral neuritis or radiculitis, unspecified Lumbosacral radiculitis Thoracic or lumbosacral neuritis or radiculitis, unspecified documented in this encounter Additional Health Concerns Assessment Noted Time PHQ-9 Depression Total Score: 2 01/30/20 16 10:00 AM CDT documented as of this encounter Care Teams Rock Splitter Relationship Specialty Start Date End Date Cole Bocanegra DO [address] [place] [address] PCP - General Internal Medicine 07/18/15 01/11/20 documented as of this encounter
--- OUTSIDE RECORDS SUMMARY | 2025-02-19 11:46 | XMS_ITS | Encounter Summary ---
Author Organization [facility] Address [address] [place] [address] Care Team Providers Care Rn Advice Name Role Phone Cole Bocanegra DO Primary Care Provider + Encounter Details Date Type Department Care Team (Latest Contact Info) Description 01/27/2006 Outpatient Historical [facility] [place] [address] [place] [address] Anais Abrams, SANAZ [address] [facility] [address] [place] [address] Sprain Lumbar Region (Primary Dx) Social History Tobacco Use Types Packs/Day Years Used Date Smoking Tobacco: Never Assessed Sex and Gender Information Value Date Recorded Sex Assigned at Not on file 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
--- OUTSIDE RECORDS SUMMARY | 2025-02-19 11:46 | XMS_ITS | Encounter Summary ---
Author Organization [facility] Address [address] [place] [address] Care Team Providers Care Self Propelled Hot Mix Roller Operator Name Role Phone Cole Bocanegra DO Primary Care Provider + Encounter Details Date Type Department Care Team (Latest Contact Info) Description 05/24/1998 Outpatient Historical [facility] Surinder Gorman MD [address] [place] [phone] Sprain of unspecified site of back (Primary Dx) Social History Tobacco Use Types Packs/Day Years Used Date Smoking Tobacco: Never Assessed Sex and Gender Information Value Date Recorded Sex Assigned at Not on file 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
--- OUTSIDE RECORDS SUMMARY | 2025-02-19 11:46 | XMS_ITS | Encounter Summary ---
Author Organization [facility] Address [address] [place] [address] Care Team Providers Care Artificial Limb Fitter Name Role Phone Cole Bocanegra DO Primary Care Provider + Encounter Details Date Type Department Care Team (Latest Contact Info) Description 01/27/2006 Outpatient Historical [facility] [place] [address] [place] [address] Anais Abrams, SANAZ [address] [facility] [address] [place] [address] Unspecified Backache (Primary Dx) Social History Tobacco Use Types Packs/Day Years Used Date Smoking Tobacco: Never Assessed Sex and Gender Information Value Date Recorded Sex Assigned at Not on file 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
--- OUTSIDE RECORDS SUMMARY | 2025-02-19 11:46 | XMS_ITS | Encounter Summary ---
Author Organization [facility] Address [address] [place] [address] Care Team Providers Care Shotblast Operator Name Role Phone Cole Bocanegra DO Primary Care Provider + Encounter Details Date Type Department Care Team (Latest Contact Info) Description 04/07/1998 Outpatient Historical [facility] Peyman Crisostomo Jr., MD [address] [place] [phone] Acute upper respiratory infections of unspecified site (Primary Dx); Benign neoplasm of skin, site unspecified Social History Tobacco Use Types Packs/Day Years Used Date Smoking Tobacco: Never Assessed Sex and Gender Information Value Date Recorded Sex Assigned at Not on file 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
--- OUTSIDE RECORDS SUMMARY | 2025-02-19 11:46 | XMS_ITS | Clinical Summary ---
Author Organization [facility] Address [address] [place] [address] Phone Care Team Providers Care Jewelry Mold Maker Name Role Phone Unavailable Primary Care Provider Unavailabl e Allergies No known active allergies Medications acetaminophen (TYLENOL) 325 mg tablet Take 325 mg by mouth every 4 hours as needed. Active cyclobenzaprine (FLEXERIL) 10 mg tablet Take 1 Tablet (10 mg) by mouth 3 times daily as needed for Spasm. 90 Tablet 1 11/22/2016 Active naproxen sodium (ALEVE) 220 mg Tablet Take 220 mg by mouth every 4 hours as needed for Pain, Moderate. Active sertraline (ZOLOFT) 100 mg tablet TAKE ONE TABLET BY MOUTH ONCE DAILY 90 Tablet 06/04/2017 Active Active Problems Problem Noted Date Diagnosed Date S/P lumbar fusion 05/31/2016 Reactive depression (situational) 05/01/2016 Herniated lumbar disc without myelopathy 016 Low back pain 01/11/2016 Spinal stenosis at L4-L5 level 01/11/2016 DDD (degenerative disc disease), lumbar 01/11/20 16 Vasomotor rhinitis 04/05/2015 HNP (herniated nucleus pulposus), cervical 12/20 Impingement syndrome of left shoulder 12/20/2014 Neck pain on left side 12/01/2014 Numbness and tingling in left hand 12/01/2014 Left shoulder pain 12/01/2014 Left arm weakness 12/01/2014 Immunizations Immunization Administration Dates Next Due (ADACEL/BOOSTRIX)(10 YR UP) TDAP VACCINE, 0.5ML, IM 07/18/2015 Hepatitis B Vaccine 09/01/2004,03/26/2003,2002 Influenza Seasonal Unspecifi ed Formulation IM 02/03/2016 Family History Medical History Relation Name Comments Healthy Brother 1 Cancer Brother 3 Lung Respiratory Disease Father Breast Cancer Maternal Aunt Diabetes Mother Stroke Paternal Grandmother Thyroid Disease Sister Relation Name Status Comments Brother 1 Alive Brother 2 (Age 45) Lung cance r Brother 3 Father Maternal Aunt Mother Paternal Grandmother Sister Alive Social History Tobacco Use Types Packs/Day Years Used Date Smoking Tobacco: Never Smokeless Tobacco: Never Tobacco Cessation:Counseling Given: No Alcohol Use Standard Drinks/Week Comments No 0 (1 standard drink = 0.6 oz pur e alcohol) Sex and Gender Information Value Date Recorded Sex Assigned at Not on file 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 Gender Identity Not on file Sexual Orientation Not on file Last Filed Vital Signs Vital Sign Reading Time Taken Comments Blood Pressure 130/93 04/04/2017 11:07 AM CONTROL PANEL TESTER Pulse 93 04/04/2017 11:07 AM CONTROL PANEL TESTER Temperature 36.5 C (97.7 F) 03/13/2016 5:00 PM CONTROL PANEL TESTER Respiratory Rate 18 03/13/2016 5:00 PM CONTROL PANEL TESTER Oxygen Saturation 94% 01/31/2017 4:44 PM CDT Inhaled Oxygen Concentration - - Weight 98.9 kg (218 lb) 04/04/2017 11:07 AM CONTROL PANEL TESTER Height 180.3 cm (5' 11 ) 04/04/2017 11:07 AM CONTROL PANEL TESTER Body Mass Index 30.4 04/04/2017 11:07 AM CONTROL PANEL TESTER Plan of Treatment Health Maintenance Due Date Last Done Comments HEPATITIS B VACCINES (1 of 3 - 19+ 3-dose series) 02/10/1999 09/01/2004, 03/26/2003, 02/05/2003 HPV VACCINES (1 - 3-dose SCDM series) 02/10/2007 INFLUENZA VACCINE (#1) 2024 02/03/2016 COLORECTAL SCREENING 02/10/2025 Colorectal Cancer Screening 02/10/2025 FIT-DNA Q 3 years 02/10/2025 FIT/FOBT Q 1 year 02/10/2025 Flex Sig/CT Colonography Q 5 years 02/10/2025 DTAP/TDAP/TD VACCINES (2 - T d or Tdap) 07/17/2025 07/18/2015 Medical Devices Implanted Type Area Legal Office Administrator Device Identifier Shelf Expiration Date Model / Serial / Lot Hemostatic Dwayne Gutierrez Sz [id number] - Csc - [id number] Implanted:Qty : 1 on 03/08/2016 by Holland Luna MD at [facility] Hemostatic N/A: Spine Lumbar PFIZER- PHARM 06/19/2018 [id number] / / [id number] Chaka Xia3 Ti Felipe Rad 6x40mm [id number] - [id number] Implanted:Qty : 2 on 03/08/2016 by Holland Luna MD at [facility] Chaka N/A: Spine Lumbar CHAPARRITA- SPINE [id number] / / LOAD [id number] Screw Xia3 Pa 5.5x45mm [id number] - Sna Implanted:Qty : 2 on 03/08/2016 by Holland Luna MD at [facility] Screw N/A: Spine Lumbar CHAPARRITA- SPINE [id number] / NA / LOAD [id number] Screw Xia3 Pa 5.5x40mm [id number] - Sna Implanted:Qty : 2 on 03/08/2016 by Holland Luna MD at [facility] Screw N/A: Spine Lumbar CHAPARRITA- SPINE [id number] / NA / LOAD [id number] Bran Xia3 [id number] - Sna Implanted:Qty : 4 on 03/08/2016 by Holland Luna MD at [facility] Spine N/A: Spine Lumbar CHAPARRITA- SPINE [id number] / NA / LOAD [id number] Insurance [place] [address] OPEN ACCESS PLUS Advance Directives For more information, please contact: [phone] * Full Code (Latest Code Status on File) Date Activated Date Inactivated Comments 03/08/2016 7:21 PM 03/13/2016 9:06 PM * Full Code Date Activated Date Inactivated Comments 03/08/2016 3:08 PM 03/08/2016 7:21 PM
--- OUTSIDE RECORDS SUMMARY | 2025-02-19 11:46 | XMS_ITS | Encounter Summary ---
Author Organization [facility] Address [address] [place] [address] Care Team Providers Care Internal Communications Manager Name Role Phone Cole Bocangera DO Primary Care Provider + Encounter Details Date Type Department Care Team (Latest Contact Info) Description 03/24/1998 Outpatient Historical [facility] Surinder Gorman MD [address] [place] [phone] Acute upper respiratory infections of unspecified site (Primary Dx) Social History Tobacco Use Types Packs/Day Years Used Date Smoking Tobacco: Never Assessed Sex and Gender Information Value Date Recorded Sex Assigned at Not on file 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
--- OUTSIDE RECORDS SUMMARY | 2025-02-19 11:46 | XMS_ITS | Clinical Summary ---
Author Organization [facility] Address [address] Arizan: Epic Prelude ADT DANIELA HICKS [address] Care Team Providers Care Business Development Officer Name Role Phone Unavailable Primary Care Provider Unavailabl e Allergies No known active allergies Medications cyclobenzaprine (FLEXERIL) 10 mg tablet Take 1 Tablet (10 mg) by mouth 3 times daily as needed for Spasm. 90 Tablet 1 11/22/2016 Active sertraline (ZOLOFT) 100 mg tablet TAKE ONE TABLET BY MOUTH ONCE DAILY 90 Tablet 0 06/04/2017 Active naproxen sodium (ALEVE) 220 mg Tablet Take 220 mg by mouth every 4 hours as needed for Pain, Moderate. 04/04/2017 Active acetaminophen (TYLENOL) 325 mg tablet Take 325 mg by mouth every 4 hours as needed. 07/18/2015 Active Active Problems Problem Noted Date Diagnosed Date S/P lumbar fusion 05/31/2016 Reactive depression (situational) 05/01/2016 Herniated lumbar disc without myelopathy 016 Low back pain 01/11/2016 Spinal stenosis at L4-L5 level 01/11/2016 DDD (degenerative disc disease), lumbar 01/11/20 16 Vasomotor rhinitis 04/05/2015 HNP (herniated nucleus pulposus), cervical 12/20 Impingement syndrome of left shoulder 12/20/2014 Left shoulder pain 12/01/2014 Numbness and tingling in left hand 12/01/2014 Neck pain on left side 12/01/2014 Left arm weakness 12/01/2014 Immunizations Immunization Administration Dates Next Due (ADACEL/BOOSTRIX)(10 YR UP) TDAP VACCINE, 0.5ML, IM 07/18/2015 Hepatitis B Vaccine 09/01/2004,03/26/2003,2002 Influenza Seasonal Unspecifi ed Formulation IM 02/03/2016 Family History Medical History Relation Name Comments Healthy Brother 1 Cancer Brother 2 Lung Respiratory Disease Father Breast Cancer Maternal Aunt Diabetes Mother Stroke Paternal Grandmother Thyroid Disease Sister Relation Name Status Comments Brother 1 Alive Brother 2 Brother 3 (Age 45) Lung cance r Father Maternal Aunt Mother Paternal Grandmother Sister Alive Social History Tobacco Use Types Packs/Day Years Used Date Smoking Tobacco: Never Smokeless Tobacco: Never Alcohol Use Standard Drinks/Week Comments No 0 (1 standard drink = 0.6 oz pur e alcohol) Sex and Gender Information Value Date Recorded Sex Assigned at Not on file 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 Gender Identity Not on file Sexual Orientation Not on file Last Filed Vital Signs Vital Sign Reading Time Taken Comments Blood Pressure 130/93 04/04/2017 11:07 AM SHOW DESIGN SUPERVISOR Pulse 93 04/04/2017 11:07 AM SHOW DESIGN SUPERVISOR Temperature 36.5 C (97.7 F) 03/13/2016 5:00 PM SHOW DESIGN SUPERVISOR Respiratory Rate 18 03/13/2016 5:00 PM SHOW DESIGN SUPERVISOR Oxygen Saturation - - Inhaled Oxygen Concentration - - Weight 98.9 kg (218 lb) 04/04/2017 11:07 AM SHOW DESIGN SUPERVISOR Height 180.3 cm (5' 11 ) 04/04/2017 11:07 AM SHOW DESIGN SUPERVISOR Body Mass Index 30.4 04/04/2017 11:07 AM SHOW DESIGN SUPERVISOR Plan of Treatment Health Maintenance Due Date [...] 07/17/2025 07/18/2015 Medical Devices Implanted Type Area Property Preservation Specialist Device Identifier Shelf Expiration Date Model / Serial / Lot Hemostatic Gelfoam [facility] [id number] - [facility] [place] - [id number] Implanted:Qt y: 1 on 03/08/2016 by Holland Luna MD Hemostatic N/A: Spine Lumbar PFIZER- PHARM 06/19/2018 [id number] / / [id number] Chaka Xia3 Ti Felipe Rad 6x40mm [id number] - [id number] Implanted:Qt y: 2 on 03/08/2016 by Holland Luna MD Chaka N/A: Spine Lumbar CHAPARRITA- SPINE [id number] / / LOAD [id number] Screw Xia3 Pa 5.5x40mm [id number] - Sna Implanted:Qt y: 2 on 03/08/2016 by Holland Luna MD Screw N/A: Spine Lumbar CHAPARRITA- SPINE [id number] / NA / LOAD [id number] Screw Xia3 Pa 5.5x45mm [id number] - Sna Implanted:Qt y: 2 on 03/08/2016 by Holland Luna MD Screw N/A: Spine Lumbar CHAPARRITA- SPINE [id number] / NA / LOAD [id number] Bran Xia3 [id number] - Sna Implanted:Qt y: 4 on 03/08/2016 by Holland Luna MD Spine N/A: Spine Lumbar CHAPARRITA- SPINE [id number] / NA / LOAD [id number]
--- OUTSIDE RECORDS SUMMARY | 2025-02-19 11:46 | XMS_ITS | Encounter Summary ---
Author Organization [facility] Address [address] [place] [address] Care Team Providers Care Anthropology And Archeology Instructor Name Role Phone Cole Bocanegra DO Primary Care Provider + Encounter Details Date Type Department Care Team (Latest Contact Info) Description 05/26/1998 Outpatient Historical [facility] Surinder Gorman MD [address] [place] [phone] Acute pharyngitis (Primary Dx); Sprain of unspecified site of back Social History Tobacco Use Types Packs/Day Years Used Date Smoking Tobacco: Never Assessed Sex and Gender Information Value Date Recorded Sex Assigned at Not on file 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
--- NOTE | 2025-02-19 13:25 | PC.NURSE ---
Discharge instructions provided to pt and significant other. RX have been delivered to bedside. Walker has been delivered from HOME. Extra ice packs provided. No questions or concerns voiced at this time.
--- NOTE | 2025-02-19 13:43 | PM.DCS ---
Discharge Providers Date of Admission: 02/18/25 14:14 Date of Discharge: February 19, 2025 Attending Provider at Admission: Yonathan Short DO Attending Provider at Discharge: Yonathan Short DO Consults: Dr. Posadas?hospitalist Primary Care Provider: Join Carrillo MD Diagnoses at Discharge Discharge Diagnosis 1. S/P total right hip arthroplasty: 2. WEST (generalized anxiety disorder): 3. Benign essential HTN: 4. Subclinical hypothyroidism: 5. Low testosterone in male: Reason for Visit Reason for Visit: M16.11 Brief History: Status post right total hip arthroplasty?make robotic assisted anterior approach Hospital Course Hospital Course Patient was brought to the hospital through the preoperative holding area with plan for right total hip arthroplasty for [right] hip dengerative joint disease. Once cleared by anesthesia for surgery subsequently was taken back to the operative suite underwent anesthesia per the anesthesia department and then underwent [right] total hip arthroplasty with Tanner robotic assistance anterior approach without any complications. Patient was then subsequently taken back to PACU in stable condition recovering well. Once recovered, patient was then subsequently admitted to the floor postoperatively. Internal medicine was consulted for medical management assistance. Patient weightbearing as tolerated to the right lower extremity, anterior hip precautions. PT/OT. Pain control. DVT prophylaxis. Postoperative antibiotics and TXA. dressing was change as needed. Internal medicine was on board and appreciate their medical management and assistance. Pt was determined on postoperative day [1] the patient was stable for discharge from orthopedic as well as internal medicine standpoint. Patient's labs were monitored daily. Patient will receive appropriate pain medication as well as DVT prophylaxis postoperatively. Appropriate discharge instructions as well. Patient was then discharged in stable condition. Patient will discharge home. Pt will follow-up with Orthopedics in the office in 2 weeks. Patient understands and agrees with current plan. All questions answered. Understands there is any issues or concerns and contact the office. Physical Exam Narrative: Right hip examination: Dressings on the right side operative hip Chloé was found in place with good seal, Silverlon dressing to the left iliac wing is clean dry and intact , No evidence of saturation. Patient has normal postoperative swelling and tenderness to palpation to the right hip. Compartments are soft compressible,'s calf soft and nontender. Sensations intact to light touch distally. Distal pulses are palpable. Patient is able to wiggle toes as well as plantarflex and dorsiflex ankle. Patient is able to perform straight leg raise , soreness with hip flexion Urinary Catheter Management: Koenig: Cath Placed During This Visit: yes, but has since been removed by the nurse Reason for Continuing Indwelling Catheter: Decision to DC Catheter Urinary Catheter Date of Insertion: 02/18/25 Urinary Catheter Time of Insertion: 07:20 Date Urinary Catheter Removed: 02/19/25 Time Urinary Catheter Discontinued: 07:00 Discharge Data Studies Completed and Pending Completed Studies During Hospitalization Category Date Time Status XR hip RT 2-3V wo/w pel* [id number] Routine Exams 02/18/25 10:59 Completed Pending at discharge Category Date Time Status Basic Metabolic Panel AM LABS Lab 02/20/25 04:00 Ordered Basic Metabolic Panel AM LABS Lab 02/21/25 04:00 Ordered Complete Blood Count w/Auto AM LABS Lab 02/20/25 04:00 Ordered Complete Blood Count w/Auto AM LABS Lab 02/21/25 04:00 Ordered Radiology Impressions Hip/Pelvis X-Ray 02/18/25 10:59 IMPRESSION: 1. RIGHT total hip replacement in satisfactory position. Laboratory Results WBC 12.31 10^3/uL (3.29-11.43) H 02/19/25 04:52 RBC 3.51 10^6/uL (3.85-5.65) L 02/19/25 04:52 Hgb 11.00 g/dL (11.27-16.99) L 02/19/25 04:52 Hct 32.5 % (37-53) L 02/19/25 04:52 MCV 92.6 fl (82-101) 02/19/25 04:52 MCH 31.3 pg (27-33) 02/19/25 04:52 MCHC 33.8 g/dL (30-55) 02/19/25 04:52 RDW 12.4 % (12.1-15.1) 02/19/25 04:52 Plt Count 176 10^3/cmm (157-399) 02/19/25 04:52 MPV 9.3 fL (7.4-10.4) 02/19/25 04:52 Neut % (Auto) 72.1 % 02/19/25 04:52 Lymph % (Auto) 14.5 % 02/19/25 04:52 Esmeralda % (Auto) 12.2 % 02/19/25 04:52 Eos % (Auto) 0.5 % 02/19/25 04:52 Baso % (Auto) 0.2 % 02/19/25 04:52 Neut # (Auto) 8.87 10^3/uL (1.8-7.7) H 02/19/25 04:52 Lymph # (Auto) 1.8 10^3/uL (0.8-4.8) 02/19/25 04:52 Esmeralda # (Auto) 1.5 10^3/uL (0.2-0.9) H 02/19/25 04:52 Eos # (Auto) 0.1 10^3/uL (0.0-0.8) 02/19/25 04:52 Baso # (Auto) 0.0 10^3/uL (0.0-0.1) 02/19/25 04:52 Nucleated RBC % (auto) 0 % 02/19/25 04:52 Nucleated RBCs # 0.0 /100WBC 02/19/25 04:52 Sodium 140 mmol/L (136-145) 02/19/25 04:52 Potassium 4.1 mmol/L (3.5-5.1) 02/19/25 04:52 Chloride 105 mmol/L (98-107) 02/19/25 04:52 Carbon Dioxide 23 mmol/L (22-29) 02/19/25 04:52 Anion Gap 16.1 (5-19) 02/19/25 04:52 BUN 14 mg/dL (6-20) 02/19/25 04:52 Creatinine 0.7 mg/dL (0.7-1.2) 02/19/25 04:52 GFR Calculation 122.0 mL/min (90-130) 02/19/25 04:52 Glucose 130 mg/dL (65-115) H 02/19/25 04:52 Calculated Osmolality 292 mOsm/kg (285-295) 02/19/25 04:52 Calcium 8.2 mg/dL (8.5-10.5) L 02/19/25 04:52 Blood Type A Positive 02/18/25 06:40 Rho(D) Type Rh positive 02/18/25 06:40 Antibody Screen Negative 02/18/25 06:40 Vitals Last Vital Signs Temp 98.2 F 02/19/25 13:26 Pulse 96 02/19/25 13:26 Resp 17 02/19/25 13:26 BP 121/81 02/19/25 13:26 Pulse Ox 97 02/19/25 13:26 O2 Del Method Room Air 02/19/25 12:00 O2 Flow Rate 8 02/18/25 11:00 Discharge Plan Discharge Patient Disposition: Home Condition: Stable Prescriptions: New Eliquis 2.5 mg tablet 2.5 mg PO BID 35 Days Qty: 70 0RF cefadroxil 500 mg capsule 500 mg PO BID 7 Days Qty: 14 0RF oxycodone 5 mg tablet 5 mg PO Q6H PRN (Reason: pain postop) 7 Days Qty: 28 0RF calcium carbonate-vitamin D3 [Calcium 600 + D(3)] 600 mg-10 mcg (400 unit) tablet 1 tab PO DAILY 30 Days Qty: 30 0RF Continued lisinopril 10 mg tablet 10 mg PO DAILY Qty: 30 5RF propranolol 20 mg tablet 20 mg PO BID Qty: 60 5RF trazodone 50 mg tablet 25 mg PO DAILY PRN (Reason: insomnia) Qty: 30 3RF Mounjaro 5 mg/0.5 mL pen injector 5 mg SUBCUT Q7D (DME) Auto CPAP 6-14 cm mmHg setting with mask, tubing and supplies See Rx Instructions .ROUTE .MEDSUPPLY Qty: 1 0RF Rx Instructions: As directed (DME) syringe with needle 1 mL 21 gauge x 1 syringe See Rx Instructions .Route Qty: 100 0RF Rx Instructions: once ever 2 weeks to draw up Tesosterone Cypionate (DME) syringe with needle, safety 1 mL 23 gauge x 1 syringe See Rx Instructions .Route Qty: 100 0RF Rx Instructions: once ever 2 weeks for testosterone injection bupropion HCl 300 mg tablet extended release 24 hr 300 mg PO DAILY Qty: 30 5RF testosterone cypionate [Depo-Testosterone] 200 mg/mL oil 150 mg SUBCUT .q 14 Qty: 2 0RF melatonin 10 mg/mL Drops 10 mg PO QPM sildenafil (pulm.hypertension) 20 mg tablet 20 mg PO PRN Rx Instructions: TAKE BY MOUTH 1 TO 5 TABS 1 HOUR BEFORE SEXUAL ACTIVITY ON AN EMPTY STOMACH Changed methocarbamol 750 mg tablet 750 mg PO TID PRN (Reason: Muscle Pain) 14 Days Qty: 42 0RF [place] Stayer 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 OK for DC: Orthopedics Discharge Order = DC NOW: Discharge Order (Routine); Ordered 02/19/25 Ordered By: Yonathan Short Other Ambulatory Orders: DME: Walker (Order) Location: None Selected Ordered By: Yonathan Short Referrals: [facility] Jose Short PA [Physician Welfare Supervisor, Orthopedics] - 03/03/25 1:45 pm Discharge Diet: Regular Discharge Activity: Limit activity as instructed Patient Instructions: Cefadroxil (By mouth) (Duricef), Oxycodone, Rapid Release (By mouth), Ondansetron (By mouth) (Zofran, Zofran ODT, Zuplenz), Calcium/Vitamin D Supplement (By mouth), Apixaban (By mouth) (Eliquis), Acute Wound Care (DC), Precautions after Total Joint Replacement Surgery (DC), Total Hip Replacement (GEN), Opioid Safety, Post Anesthesia Care, Patient Portal & Rahul Instructions Activity Restrictions/Additional Instructions: Postoperative orthopedic discharge instructions Right hip dressing--Chloé Dressing--Keep dressing on and dry. disconnect battery pack when showering. Chloé dressing will stay on until follow up appt in 2 weeks. The battery pack for the dressing will at 5-7 days. Battery pack can be removed and discarded once batteries . Patient should keep dressings clean dry and intact Okay to shower over dressings if they do become wet these should be removed and new dressings applied Left hip dressing--Keep incisions clean dry and intact, leave Silverlon bandage dressings on in place for 7 days after that may rinse incisions with warm soapy water pat dry and redress with a dry dressing Weight-bear as tolerated to operative lower extremity Anterior hip precautions as instructed by physical therapy (avoid crossing the legs and avoid hip extension) Ice as needed for pain and swelling Take pain medication as prescribed Take antinausea medication as needed Take antibiotic as prescribed for postop infection prevention Supplement with Citracal vitamin D for bone health and healing Pain medication can cause constipation. take [id number]-khplexn stool softeners and or MiraLAX. Take blood thinner as prescribed (Eliquis) Follow-up in the orthopedic office in 2 weeks Contact the office for any questions or concerns Discharge Attestations Time Spent in Discharge Care*: less than 30 min Quality Metrics Clinical Quality Measures [ No reported AMI, CVA or VTE this stay] Coding Level of Care Code Acute Code for Chg Fwd Diagnoses S/P total right hip arthroplasty Z96.641 WEST (generalized anxiety disorder) F41.1 Benign essential HTN I10 Subclinical hypothyroidism E03.8 Low testosterone in male R79.89 Time Spent (min) 25
== END 2025-02-19 13:54 | disposition home or self-care (01) ==
LOC: MEDSURG 15:43
PROVIDERS: Physician Assistant; Admitting Provider Student in an Organized Health Care Education/Training Program; PCP Family Medicine; Visit Provider Student in an Organized Health Care Education/Training Program
PROC: 8E0Y0CZ Robotic Assisted Procedure of Lower Extremity, Open Approach (ICD-10-PCS; CPT 27130; principal; 2025-02-18 07:00)
DX: M16.11 Unilateral primary osteoarthritis, right hip (principal); F41.1 Generalized anxiety disorder; I10 Essential (primary) hypertension; E03.8 Other specified hypothyroidism; R79.89 Other specified abnormal findings of blood chemistry; F17.200 Nicotine dependence, unspecified, uncomplicated; E07.9 Disorder of thyroid, unspecified
CPT/HCPCS: 27130; 20985; 36415; 51702; 73502; 76000; 80048; 85025; 86850; 86900; 97110; 97116; 97162; 97165; C1776; G0378; J0131; J0169; J0690; J1100; J1885; J2250; J2371; J2405; J2704; J3373; J3490; J7030; J7120; J9999; P9045

== ENCOUNTER → 2025-03-03 13:44 | Outpatient (BNVA) | payer MEDICAID, SELFPAY | PROVIDERS: PCP Family Medicine; Visit Provider Physician Assistant | DX: Z98.890 Other specified postprocedural states (principal); Z96.641 Presence of right artificial hip joint | CPT/HCPCS: 73502 ==

== ENCOUNTER → 2025-03-24 14:43 | Outpatient (BNVA) | payer MEDICAID, SELFPAY | PROVIDERS: PCP Family Medicine; Visit Provider Physician Assistant | DX: Z98.890 Other specified postprocedural states (principal); Z96.641 Presence of right artificial hip joint | CPT/HCPCS: 73502 ==

== ENCOUNTER 2025-03-24 15:31 | Emergency (ER) | payer MEDICAID, SELFPAY ==
--- NOTE | 2025-03-24 15:36 | ECG_ITS ---
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 Measurements Intervals Black Rate: 117 P: 42 ID: [id number] QRS: 77 QRSD: 84 T: 43 QT: 300 QTc: 419 Interpretive Statements SINUS TACHYCARDIA NONSPECIFIC T-WAVE ABNORMALITY ABNORMAL RHYTHM ECG No previous ECG available for comparison Electronically Signed On 03-24-2025 23:28:15 CHIP MACHINE OPERATOR by Yunier Suarez M.D. [email or web address]
--- NOTE | 2025-03-24 15:37 | XRR_ITS ---
PROCEDURE INFORMATION: Exam: XR Chest Exam date and time: 03/24/2025 3:45 PM Age: 45 years old Clinical indication: Cough and dyspnea; Additional info: Dyspnea/cough TECHNIQUE: Imaging protocol: Radiologic exam of the chest. Views: 1 view. COMPARISON: No relevant prior studies available. FINDINGS: Lungs: Clear lungs. Pleural spaces: No pneumothorax or pleural effusion. Costophrenic angles are excluded from the image. Heart/Mediastinum: Cardiac silhouette is normal. Bones/joints: Unremarkable. XR/XR chest 1V portable [id number] IMPRESSION: No acute findings.
[2025-03-24 15:44] VITALS: BP 127/94; PULSE 114; RESP 18; TEMP 36.8; O2SAT 97; BMI 32.3
--- NOTE | 2025-03-24 16:00 | W.ED.ARRPALP ---
HPI - Arrhythmia/Palpitations General: Chief Complaint: Arrhythmia/Palpitations Stated Complaint: High HR SOB Time Seen by Provider: 03/24/25 15:54 History of Present Illness: 45-year-old male presents emergency room with complaints of a rapid heart rate and some shortness of breath. He is several weeks out from a right hip arthroplasty and as he is increase his activities and was increasing symptoms was diverted to the emergency room by his orthopedist of the developing symptoms. Related Data Home Medications ?Medication ?Instructions ?Recorded ?Confirmed tirzepatide 5 mg/0.5 mL 5 mg SUBCUT Q7D 09/04/24 03/24/25 subcutaneous pen injector (Mounjaro) melatonin 10 mg/mL oral drops 10 mg PO QPM 01/01/25 03/24/25 sildenafil (pulm.hypertension) 20 20 mg PO PRN 01/01/25 03/24/25 mg tablet albuterol sulfate 90 mcg/actuation 2 puff inhalation Q4H PRN 03/24/25 03/24/25 aerosol inhaler (Ventolin HFA) Shortness Of Breath Or Wheezing calcium 600 mg (as 1 tab PO DAILY 03/24/25 03/24/25 carbonate)-vitamin D3 10 mcg (400 unit) tablet cetirizine 10 mg tablet 10 mg PO DAILY PRN allergies 03/24/25 03/24/25 ondansetron 4 mg disintegrating 4 mg PO Q8H PRN Nausea And Vomiting 03/24/25 03/24/25 tablet Previous Rx's ?Medication ?Instructions ?Recorded lisinopril 10 mg tablet 10 mg PO DAILY #30 tabs 06/18/24 propranolol 20 mg tablet 20 mg PO BID #60 tabs 06/18/24 trazodone 50 mg tablet 25 mg (1/2 x 50 mg) PO DAILY PRN 06/18/24 insomnia #30 tabs Auto CPAP 6-14 cm mmHg setting #1 ea 08/17/24 with mask, tubing and supplies syringe with needle 1 mL 21 gauge #100 ea 10/07/24 x 1 syringe with needle, safety 1 mL #100 ea 10/08/24 23 gauge x 1 bupropion HCl 300 mg 24 hr tablet, 300 mg PO DAILY #30 tabs 12/10/24 extended release testosterone cypionate 200 mg/mL 150 mg (0.75 mL) SUBCUT .q 14 #2 mL 01/11/25 intramuscular oil (Depo-Testosterone) methocarbamol 750 mg tablet 750 mg PO TID PRN Muscle Pain 14 02/19/25 days #42 tabs RIGHT KNEE ECONOMY BRACE #1 ea 03/03/25 oxycodone 5 mg tablet 5 mg PO Q6H PRN pain postop 7 days 03/17/25 #28 tabs Allergies Allergy/AdvReac Type Severity Reaction Status Date / Time No Known Allergies Allergy Verified 03/24/25 15:53 Review of Systems Const: Denies: fever(s) or chills Card: Denies: chest pain Resp: Denies: dyspnea GI: Denies: abdominal pain : Denies: dysuria, urinary frequency or urinary urgency Musc: Denies: neck pain or back pain Skin/Breast: Denies: rash PFSH ED PFSH: Medical History Alcohol use disorder Subclinical hypothyroidism Chronic neck pain Spinal stenosis at L4-L5 level Surgical History History of lumbar spinal fusion In 2017 - at [facility] Family History Mother Diabetes Grandmother , father's side Stroke Father Asthma Emphysema of lung Brother Cancer, Onset Age: 40 lung Family/Other Cancer breast cancer Social History Smoking and tobacco/nicotine status: current every day tobacco/nicotine user pipe Second hand smoke exposure: No Alcohol intake: current Alcohol intake frequency: 0-2 Drinks per Day Alcohol type: hard liquor Substance/Drug Use: current Substance/Drug use frequency: other Other substance/drug use details: occasional use Adopted: No Caregiver/support person: No Lives independently: Yes Housing: House Marital status: Single Number of children: 0 Highest education level completed: Bachelor's Degree service: No Current occupational status: unemployed 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 Physical Exam Const: GENERAL APPEARANCE: cooperative ORIENTATION/CONSCIOUSNESS: Yes awake, Yes oriented to person, Yes oriented to place and Yes oriented to time HENMT: COMMON NORMALS: normocephalic, atraumatic and hearing grossly normal bilaterally HEAD & SCALP: normocephalic and atraumatic Resp: COMMON NORMALS: normal respiratory effort, No retractions, No use of accessory muscles and clear to auscultation bilaterally AUSCULTATION: clear to auscultation bilaterally Cardio: COMMON NORMALS: regular rhythm and No murmurs present (Cardio) RATE: tachycardic RHYTHM: regular rhythm GI: COMMON NORMALS: Soft to palpation and No hepatosplenomegaly present AUSCULTATION: Yes normoactive bowel sounds PALPATION: Yes Soft to palpation, No Tenderness to palpation present (GI), No Guarding due to palpation present (GI) and Yes No hepatosplenomegaly present Extremity: COMMON NORMALS: normal to inspection, capillary refill normal, no clubbing, cyanosis or edema, no calf tenderness and no pedal edema Neuro: SENSORIUM/ORIENTATION: Yes oriented to person, Yes oriented to place and Yes oriented to time Skin: COMMON NORMALS: no rashes or lesions noted GENERAL SKIN EXAM: no rashes or lesions noted Course Vital Signs: Vital signs: Vital Signs Temperature 98.3 F 03/24/25 15:44 Pulse Rate 84 03/24/25 20:12 Respiratory Rate 25 H 03/24/25 17:39 Blood Pressure 116/79 03/24/25 20:12 Pulse Oximetry 97 03/24/25 20:12 Oxygen Delivery Me thod Room Air 03/24/25 19:56 MDM - Arrhythmia/Palpitations Medical Decision Making Medical decision making Social determinants: None I reviewed the patient's medical record. I reviewed the patient's current home meds. Alternate historians: None Differential diagnosis: PE, pneumonia, sinus tachycardia, acute coronary syndrome Lab Review:CBC normal AST ALT slightly elevated T. bili normal remainder of chemistries unremarkable troponins did not show any positive delta Imaging:Chest x-ray unremarkable, CTA of the chest negative for PE Assessment of risk Level of risk: Moderate Hospitalization considerations: Significant risk for PE or pneumonia given recent surgery. Patient also has risk factors for coronary artery disease Reexamination: Tachycardia improved no further symptoms no dyspnea Assessment and plan: Patient has no PE no pneumonia no pneumothorax dissecting aneurysm no signs of congestive heart failure. He is not tachycardic or hypoxic. His labs are otherwise unremarkable discharged home and follow-up with his primary care doctor return if is any change in symptoms. Lab Data 03/24/25 16:02 03/24/25 16:02 Radiology Impressions Chest X-Ray 03/24/25 15:37 IMPRESSION: No acute findings. Chest CTA 03/24/25 16:10 IMPRESSION: No pulmonary embolism. Laboratory Results WBC 7.46 10^3/uL (3.29-11.43) 03/24/25 16:02 RBC 5.39 10^6/uL (3.85-5.65) 03/24/25 16:02 Hgb 16.70 g/dL (11.27-16.99) 03/24/25 16:02 Hct 48.6 % (37-53) 03/24/25 16:02 MCV 90.2 fl (82-101) 03/24/25 16:02 MCH 31.0 pg (27-33) 03/24/25 16:02 MCHC 34.4 g/dL (30-55) 03/24/25 16:02 RDW 12.5 % (12.1-15.1) 03/24/25 16:02 Plt Count 218 10^3/cmm (157-399) 03/24/25 16:02 MPV 8.9 fL (7.4-10.4) 03/24/25 16:02 Neut % (Auto) 59.9 % 03/24/25 16:02 Lymph % (Auto) 23.9 % 03/24/25 16:02 [place] % (Auto) 11.0 % 03/24/25 16:02 Eos % (Auto) 4.0 % 03/24/25 16:02 Baso % (Auto) 0.9 % 03/24/25 16:02 Neut # (Auto) 4.47 10^3/uL (1.8-7.7) 03/24/25 16:02 Lymph # (Auto) 1.8 10^3/uL (0.8-4.8) 03/24/25 16:02 [place] # (Auto) 0.8 10^3/uL (0.2-0.9) 03/24/25 16:02 Eos # (Auto) 0.3 10^3/uL (0.0-0.8) 03/24/25 16:02 Baso # (Auto) 0.1 10^3/uL (0.0-0.1) 03/24/25 16:02 Nucleated RBC % (auto) 0 % 03/24/25 16:02 Nucleated RBCs # 0.0 /100WBC 03/24/25 16:02 Sodium 138 mmol/L (136-145) 03/24/25 16:02 Potassium 4.4 mmol/L (3.5-5.1) 03/24/25 16:02 Chloride 102 mmol/L (98-107) 03/24/25 16:02 Carbon Dioxide 24 mmol/L (22-29) 03/24/25 16:02 Anion Gap 16.4 (5-19) 03/24/25 16:02 BUN 17 mg/dL (6-20) 03/24/25 16:02 Creatinine 0.9 mg/dL (0.7-1.2) 03/24/25 16:02 GFR Calculation 91.3 mL/min (90-130) 03/24/25 16:02 Glucose 129 mg/dL (65-115) H 03/24/25 16:02 Calculated Osmolality 289 mOsm/kg (285-295) 03/24/25 16:02 Calcium 9.8 mg/dL (8.5-10.5) 03/24/25 16:02 Total Bilirubin 0.8 mg/dL (0.15-1.2) 03/24/25 16:02 AST 43 U/L (0-40) H 03/24/25 16:02 ALT 69 U/L (0-41) H 03/24/25 16:02 Alkaline Phosphatase 102 U/L (40-130) 03/24/25 16:02 Creatine Kinase 107 U/L (39-308) 03/24/25 16:02 Troponin T Baseline 9 ng/L (0-15) 03/24/25 16:02 Troponin T 120 Minute 9.02 ng/L (0-15) 03/24/25 17:54 Delta Troponin T 0.02 ABS# (0-10) 03/24/25 17:54 Total Protein 7.9 g/dL (6.6-8.7) 03/24/25 16:02 Albumin 4.8 g/dL (3.5-5.2) 03/24/25 16:02 Globulin 3.1 g/dL (1.3-4.6) 03/24/25 16:02 All radiology interpretation(s) finalized by discharge EKG Data EKG 1: I personally reviewed and interpreted this EKG as follows: Interpretation: Sinus tachycardia rate of 117 OR interval 136 QTc 419. No acute ST-T changes noted no previous EKGs available for comparison Other EKG comments: Chest X-Ray 03/24/25 15:37 IMPRESSION: No acute findings. Chest CTA 03/24/25 16:10 IMPRESSION: No pulmonary embolism. EKG 2: I personally reviewed and interpreted this EKG as follows: Interpretation: 03/24/2025 1633 sinus rhythm rate of 99 OR interval 189 QTc 401. Compared to EKG done earlier same day no acute changes no ST elevation rate is improved. Other EKG comments: Chest X-Ray 03/24/25 15:37 IMPRESSION: No acute findings. Chest CTA 03/24/25 16:10 IMPRESSION: No pulmonary embolism. EKG 3: I personally reviewed and interpreted this EKG as follows: Interpretation: EKG 03/24/2025 1821 sinus rhythm rate of 96 OR interval 166 QTc 393 compared to EKG done earlier same day no acute changes no STEMI Other EKG comments: Chest X-Ray 03/24/25 15:37 IMPRESSION: No acute findings. Chest CTA 03/24/25 16:10 IMPRESSION: No pulmonary embolism. Clincial Decision Support The following clinical decision support tools were used to aid in care of the patient HEART Score -> History: Slightly Suspicous, EKG: Normal, Age: Less than 45 yrs, Risk Factors: 1 or 2 Risk Factors, Troponin: Baseline Trop <16 ng/L. Resulting HEART Score: 1. Discharge Plan Discharge Patient Disposition: Home Clinical Impression: Dyspnea, Tachycardia, S/P total right hip arthroplasty Condition: Stable Prescriptions: No Action lisinopril 10 mg tablet 10 mg PO DAILY Qty: 30 5RF propranolol 20 mg tablet 20 mg PO BID Qty: 60 5RF trazodone 50 mg tablet 25 mg PO DAILY PRN (Reason: insomnia) Qty: 30 3RF Mounjaro 5 mg/0.5 mL pen injector 5 mg SUBCUT Q7D (DME) RIGHT KNEE ECONOMY BRACE See Rx Instructions .Route .MEDSUPPLY Qty: 1 0RF Rx Instructions: As directed (DME) Auto CPAP 6-14 cm mmHg setting with mask, tubing and supplies See Rx Instructions .ROUTE .MEDSUPPLY Qty: 1 0RF Rx Instructions: As directed (DME) syringe with needle 1 mL 21 gauge x 1 syringe See Rx Instructions .Route Qty: 100 0RF Rx Instructions: once ever 2 weeks to draw up Tesosterone Cypionate (DME) syringe with needle, safety 1 mL 23 gauge x 1 syringe See Rx Instructions .Route Qty: 100 0RF Rx Instructions: once ever 2 weeks for testosterone injection bupropion HCl 300 mg tablet extended release 24 hr 300 mg PO DAILY Qty: 30 5RF testosterone cypionate [Depo-Testosterone] 200 mg/mL oil 150 mg SUBCUT .q 14 Qty: 2 0RF oxycodone 5 mg tablet 5 mg PO Q6H PRN (Reason: pain postop) 7 Days Qty: 28 0RF melatonin 10 mg/mL Drops 10 mg PO QPM sildenafil (pulm.hypertension) 20 mg tablet 20 mg PO PRN Rx Instructions: TAKE BY MOUTH 1 TO 5 TABS 1 HOUR BEFORE SEXUAL ACTIVITY ON AN EMPTY STOMACH cetirizine 10 mg tablet 10 mg PO DAILY PRN (Reason: allergies) albuterol sulfate [Ventolin HFA] 90 mcg/actuation HFA aerosol inhaler 2 puff INHALATION Q4H PRN (Reason: Shortness Of Breath Or Wheezing) ondansetron 4 mg tablet,disintegrating 4 mg PO Q8H PRN (Reason: Nausea And Vomiting) calcium carbonate-vitamin D3 600 mg-10 mcg (400 unit) tablet 1 tab PO DAILY methocarbamol 750 mg tablet 750 mg PO TID PRN (Reason: Muscle Pain) 14 Days Qty: 42 0RF Discharge Orders: Discharge ED (Routine); Ordered 03/24/25 Ordered By: Van Bailey Referrals: Joni Carrillo MD [Primary Care Provider, Family Practice] Patient Instructions: Opioid Safety, Pain Management, Patient Portal & Rahul Instructions Activity Restrictions/Additional Instructions: [facility] you [facility] healthcare needs today. It is very important that you follow up as instructed or that you return to the Emergency Department should you have concerns or if your condition changes or worsens in any way. Emergency department visits are focused on emergent conditions, in some cases you may require further evaluation on an outpatient basis. You were seen in the emergency room with complaints of shortness of breath and rapid heart rate. Given your recent surgery this was concerning for a pulmonary embolism. We were able to definitively rule this out with a CT of your chest. Other tests including EKGs and evaluation of your cardiac enzymes were negative for signs of acute coronary syndrome. At this point there is no finding of any emergent condition you can safely be discharged home follow-up with your primary care doctor and orthopedist as scheduled. (Please note that included in your discharge packet is information concerning opioid safety and pain management. This information is given to all patients were discharged from the ER regardless of their discharge diagnosis or the medicines they usually take or are prescribed.) Print Language: Vietnamese Coding Level of Care Code ED Emulsion Coater for Elsa England
[2025-03-24 16:10] LABS: Hematocrit 48.6 % (37-53); Hemoglobin 16.70 g/dL (11.27-16.99); Mean Corpuscular HGB Conc 34.4 g/dL (30-55); Mean Corpuscular Hemoglobin 31.0 pg (27-33); Mean Corpuscular Volume 90.2 fl (82-101); Nucleated Red Blood Cells % 0 %; Platelet Count 218 10^3/cmm (157-399); Red Blood Count 5.39 10^6/uL (3.85-5.65); White Blood Count 7.46 10^3/uL (3.29-11.43)
--- NOTE | 2025-03-24 16:10 | CTR_ITS ---
PROCEDURE INFORMATION: Exam: CTA Chest With Contrast Exam date and time: 03/24/2025 4:23 PM Age: 45 years old Clinical indication: Other: Recent surgery tachycardia dyspnea TECHNIQUE: Imaging protocol: Computed tomographic angiography of the chest with contrast. Exam focused on the arteries. 3D rendering (Not supervised by radiologist): MIP and/or 3D reconstructed images were created by the technologist. Radiation optimization: All CT scans at this facility use at least one of these dose optimization techniques: automated exposure control; mA and/or kV adjustment per patient size (includes targeted exams where dose is matched to clinical indication); or iterative reconstruction. COMPARISON: CR XR chest 1V portable [id number] 03/24/2025 3:45 PM FINDINGS: Pulmonary arteries: No pulmonary embolism. Lungs: Clear lungs. Pleural spaces: No pneumothorax or pleural effusion. Heart: Heart size is normal. No pericardial effusion. Lymph nodes: No supraclavicular, axillary, mediastinal, or hilar adenopathy. Bones/joints: No acute fracture or dislocation. Degenerative changes of the thoracic spine. Soft tissues: Unremarkable. CT/CT angio chest PE protcl [id number] IMPRESSION: No pulmonary embolism.
--- OUTSIDE RECORDS SUMMARY | 2025-03-24 16:14 | XMS_ITS | Encounter Summary ---
Author Organization [facility] Address [address] [place] [address] Care Team Providers Care Feed And Farm Management Adviser Name Role Phone Cole Bocanegra DO Primary Care Provider + Reason for Referral * Outpatient Services (Routine) - Closed Specialty Diagnoses / Procedures Referred By Jass montes de oca Referred To Contact Diagnoses Lumbosacral radiculitis Procedures XR FLUORO NEEDLE GUIDANCE Surinder Beasley MD Phone: tel: fax: Referral ID Status Reason Start Date Expiration Date Visits Re quested Visits Authorized [id number] Closed 01/30/2016 03/01/2017 1 1 Encounter Details Date Type Department Care Team (Late st Contact Info) Description 01/30/2016 Ancillary Orders [facility] Pain Management Procedures [address] [place] [phone] [place] [id number] [facility] [address] [place] [address] Lumbosacral radiculitis (Primary Dx) Social History Tobacco Use Types Packs/Day Years Used Date Smoking Tobacco: Never Smokeless Tobacco: Never Alcohol Use Standard Drinks/Week Comments No 0 (1 standard drink = 0.6 oz pur e alcohol) Sex and Gender Information Value Date Recorded Sex Assigned at Not on file 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 [place] [address] PCP - General Internal Medicine 07/18/15 01/11/20 documented as of this encounter
--- OUTSIDE RECORDS SUMMARY | 2025-03-24 16:14 | XMS_ITS | Encounter Summary ---
Author Organization [facility] Address [address] [place] [address] Care Team Providers Care Office Professional Name Role Phone Cole Bocanegra DO Primary Care Provider + Encounter Details Date Type Department Care Team (Latest Contact Info) Description 01/27/2006 Outpatient Historical [facility] [place] [address] [place] [address] Anais Abrams, SANAZ [address] [facility] [address] [place] [address] Unspecified Backache (Primary Dx) Social History Tobacco Use Types Packs/Day Years Used Date Smoking Tobacco: Never Assessed Sex and Gender Information Value Date Recorded Sex Assigned at Not on file 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
--- OUTSIDE RECORDS SUMMARY | 2025-03-24 16:14 | XMS_ITS | Encounter Summary ---
Author Organization [facility] Address [address] [place] [address] Care Team Providers Care Metallographer Name Role Phone Cole Bocanegra DO Primary Care Provider + Encounter Details Date Type Department Care Team (Latest Contact Info) Description 01/27/2006 Outpatient Historical [facility] [place] [address] [place] [address] Anais Abrams, SANAZ [address] [facility] [address] [place] [address] Sprain Lumbar Region (Primary Dx) Social History Tobacco Use Types Packs/Day Years Used Date Smoking Tobacco: Never Assessed Sex and Gender Information Value Date Recorded Sex Assigned at Not on file 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
--- OUTSIDE RECORDS SUMMARY | 2025-03-24 16:15 | XMS_ITS | Encounter Summary ---
Author Organization [facility] Address [address] [place] [address] Care Team Providers Care Glass Sander Name Role Phone Cole Bocanegra DO Primary Care Provider + Encounter Details Date Type Department Care Team (Latest Contact Info) Description 04/07/1998 Outpatient Historical [facility] Peyman Crisostomo Jr., MD [address] [place] [phone] Acute upper respiratory infections of unspecified site (Primary Dx); Benign neoplasm of skin, site unspecified Social History Tobacco Use Types Packs/Day Years Used Date Smoking Tobacco: Never Assessed Sex and Gender Information Value Date Recorded Sex Assigned at Not on file 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
--- OUTSIDE RECORDS SUMMARY | 2025-03-24 16:15 | XMS_ITS | Clinical Summary ---
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 Gender Identity Not on file Sexual Orientation Not on file Last Filed Vital Signs Vital Sign Reading Time Taken Comments Blood Pressure 130/93 04/04/2017 11:07 AM CAR LOT ATTENDANT Pulse 93 04/04/2017 11:07 AM CAR LOT ATTENDANT Temperature 36.5 C (97.7 F) 03/13/2016 5:00 PM CAR LOT ATTENDANT Respiratory Rate 18 03/13/2016 5:00 PM CAR LOT ATTENDANT Oxygen Saturation 94% 01/31/2017 4:44 PM CDT Inhaled Oxygen Concentration - - Weight 98.9 kg (218 lb) 04/04/2017 11:07 AM CAR LOT ATTENDANT Height 180.3 cm (5' 11 ) 04/04/2017 11:07 AM CAR LOT ATTENDANT Body Mass Index 30.4 04/04/2017 11:07 AM CAR LOT ATTENDANT Plan of Treatment Health Maintenance Due Date [...] 07/17/2025 07/18/2015 Medical Devices Implanted Type Area Bonbon Cream Warmer Device Identifier Shelf Expiration Date Model / Serial / Lot Hemostatic Dwayne Gutierrez Sz [id number] - Csc - [id number] Implanted:Qty : 1 on 03/08/2016 by Holland Luna MD at Hemostatic N/A: Spine Lumbar PFIZER- PHARM 06/19/2018 [id number] / / [id number] Chaka Xia3 Ti Felipe Rad 6x40mm [id number] - [id number] Implanted:Qty : 2 on 03/08/2016 by Holland Luna MD at Chaka N/A: Spine Lumbar CHAPARRITA- SPINE [id number] / / LOAD [id number] Screw Xia3 Pa 5.5x45mm [id number] - Sna Implanted:Qty : 2 on 03/08/2016 by Holland Luna MD at Screw N/A: Spine Lumbar CHAPARRITA- SPINE [id number] / NA / LOAD [id number] Screw Xia3 Pa 5.5x40mm [id number] - Sna Implanted:Qty : 2 on 03/08/2016 by Holland Luna MD at Screw N/A: Spine Lumbar CHAPARRITA- SPINE [id number] / NA / LOAD [id number] Bran Xia3 [id number] - Sna Implanted:Qty : 4 on 03/08/2016 by Holland Luna MD at Spine N/A: Spine Lumbar CHAPARRITA- SPINE [id number] / NA / LOAD [id number] [place] [place] [address] OPEN ACCESS PLUS Advance Directives For more information, please contact: [phone] * Full Code (Latest Code Status on File) Date Activated Date Inactivated Comments 03/08/2016 7:21 PM 03/13/2016 9:06 PM * Full Code Date Activated Date Inactivated Comments 03/08/2016 3:08 PM 03/08/2016 7:21 PM
--- OUTSIDE RECORDS SUMMARY | 2025-03-24 16:15 | XMS_ITS | Encounter Summary ---
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
--- OUTSIDE RECORDS SUMMARY | 2025-03-24 16:15 | XMS_ITS | Clinical Summary ---
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 Gender Identity Not on file Sexual Orientation Not on file Last Filed Vital Signs Vital Sign Reading Time Taken Comments Blood Pressure 130/93 04/04/2017 11:07 AM ELECTRICAL INSTRUMENT MAKER Pulse 93 04/04/2017 11:07 AM ELECTRICAL INSTRUMENT MAKER Temperature 36.5 C (97.7 F) 03/13/2016 5:00 PM ELECTRICAL INSTRUMENT MAKER Respiratory Rate 18 03/13/2016 5:00 PM ELECTRICAL INSTRUMENT MAKER Oxygen Saturation - - Inhaled Oxygen Concentration - - Weight 98.9 kg (218 lb) 04/04/2017 11:07 AM ELECTRICAL INSTRUMENT MAKER Height 180.3 cm (5' 11 ) 04/04/2017 11:07 AM ELECTRICAL INSTRUMENT MAKER Body Mass Index 30.4 04/04/2017 11:07 AM ELECTRICAL INSTRUMENT MAKER Plan of Treatment Health Maintenance Due Date [...] 07/17/2025 07/18/2015 Medical Devices Implanted Type Area Cake Former Device Identifier Shelf Expiration Date Model / Serial / Lot Hemostatic Gelfoam Lg Sz [id number] - Csc - [id number] Implanted:Qt y: 1 on 03/08/2016 by Holland Luna MD Hemostatic N/A: Spine Lumbar PFIZER- PHARM 06/19/2018 [id number] / / [id number] Chaka Xia3 Ti Felipe Rad 6x40mm [id number] - [id number] Implanted:Qt y: 2 on 03/08/2016 by Holland Luna MD Chaka N/A: Spine Lumbar CHAPARRITA- SPINE [id number] / / LOAD [id number] Screw Xia3 Pa 5.5x40mm [id number] - Sna Implanted:Qt y: 2 on 03/08/2016 by Holland Luna MD Screw N/A: Spine Lumbar CHAPARRITA- SPINE [id number] / NA / LOAD [id number] Screw Xia3 Pa 5.5x45mm [id number] - Sna Implanted:Qt y: 2 on 03/08/2016 by Holland Luna MD Screw N/A: Spine Lumbar CHAPARRITA- SPINE [id number] / NA / LOAD [id number] Bran Xia3 [id number] - Sna Implanted:Qt y: 4 on 03/08/2016 by Holland Luna MD Spine N/A: Spine Lumbar CHAPARRITA- SPINE [id number] / NA / LOAD [id number]
--- OUTSIDE RECORDS SUMMARY | 2025-03-24 16:15 | XMS_ITS | Encounter Summary ---
Author Organization [facility] Address [address] [place] [address] Care Team Providers Care Slot Supervisor Name Role Phone Cole Bocanegra DO Primary Care Provider + Encounter Details Date Type Department Care Team (Latest Contact Info) Description 05/26/1998 Outpatient Historical [facility] Surinder Gorman MD [address] [place] [phone] Acute pharyngitis (Primary Dx); Sprain of unspecified site of back Social History Tobacco Use Types Packs/Day Years Used Date Smoking Tobacco: Never Assessed Sex and Gender Information Value Date Recorded Sex Assigned at Not on file 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
--- OUTSIDE RECORDS SUMMARY | 2025-03-24 16:15 | XMS_ITS | Encounter Summary ---
Author Organization [facility] Address [address] [place] [address] Care Team Providers Care First Aid Instructor Name Role Phone Cole Bocanegra DO Primary Care Provider + Encounter Details Date Type Department Care Team (Latest Contact Info) Description 03/24/1998 Outpatient Historical [facility] Surinder Gorman MD [address] [place] [phone] Acute upper respiratory infections of unspecified site (Primary Dx) Social History Tobacco Use Types Packs/Day Years Used Date Smoking Tobacco: Never Assessed Sex and Gender Information Value Date Recorded Sex Assigned at Not on file 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
[2025-03-24 16:26] LABS: Alanine Aminotransferase 69 U/L (0-41); Albumin Level 4.8 g/dL (3.5-5.2); Alkaline Phosphatase 102 U/L (40-130); Aspartate Amino Transferase 43 U/L (0-40); Blood Urea Nitrogen 17 mg/dL (6-20); Calcium 9.8 mg/dL (8.5-10.5); Carbon Dioxide 24 mmol/L (22-29); Chloride 102 mmol/L (98-107); Globulin 3.1 g/dL (1.3-4.6); Glucose 129 mg/dL (65-115); Osmolality Calculated 289 mOsm/kg (285-295); Sodium 138 mmol/L (136-145); Total Protein 7.9 g/dL (6.6-8.7)
[2025-03-24] MEDS: iohexol 350 mg/mL 500 mL Btl (per mL) IV ×2 (16:27→18:30)
[2025-03-24 16:30] LABS: Anion Gap 16.4 (5-19); Potassium 4.4 mmol/L (3.5-5.1)
--- NOTE | 2025-03-24 16:33 | ECG_ITS ---
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 Measurements Intervals [place] Rate: 99 P: 39 [place]: 169 QRS: 74 QRSD: 80 T: 46 QT: 312 QTc: 401 Interpretive Statements SINUS RHYTHM SEPTAL MYOCARDIAL INFARCTION , OF INDETERMINATE AGE [40+ ms Q WAVE IN V1/V2] Compared to ECG 03/24/2025 15:48:39 Myocardial infarct finding now present Sinus tachycardia no longer present T-wave abnormality no longer present Electronically Signed On 03-24-2025 23:28:04 INVENTORY CONTROL/SHIPPING RECEIVING by Yunier Suarez M.D. [email or web address]
--- NOTE | 2025-03-24 16:49 | PC.PHAR ---
Medications verified with [facility]
[2025-03-24 16:55] LABS: Troponin(5th) Baseline 9 ng/L (0-15)
[2025-03-24 17:39] VITALS: BP 121/91; PULSE 93; RESP 25; O2SAT 94
--- NOTE | 2025-03-24 18:10 | ECG_ITS ---
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 Measurements Intervals [place] Rate: 96 P: 29 [place]: 166 QRS: 58 QRSD: 79 T: 44 QT: 311 QTc: 393 Interpretive Statements SINUS RHYTHM SEPTAL MYOCARDIAL INFARCTION , OF INDETERMINATE AGE [40+ ms Q WAVE IN V1/V2] Compared to ECG 03/24/2025 16:33:27 No significant changes Electronically Signed On 03-24-2025 23:41:48 CORPORATE MANAGER by Yunier Suarez M.D. [email or web address]
--- NOTE | 2025-03-24 18:20 | PC.NURSE ---
Addendum entered by Ashley Sigala RN 03/24/25 18:27: CT denies need for repeat CTA order, can use same order. Original Note: contacted CT regarding needing repeat CTA, asked if second order was needed, CT states they will check and call back
[2025-03-24 19:56] VITALS: BP 118/90; PULSE 91; O2SAT 94
[2025-03-24 20:12] VITALS: BP 116/79; PULSE 84; O2SAT 97
== END 2025-03-24 20:22 | disposition home or self-care (01) ==
PROVIDERS: Emergency Provider Family Medicine; PCP Family Medicine
DX: R06.00 Dyspnea, unspecified (principal); R00.0 Tachycardia, unspecified; Z96.641 Presence of right artificial hip joint; F17.290 Nicotine dependence, other tobacco product, uncomplicated
CPT/HCPCS: 36415; 71045; 71275; 80053; 82550; 84484; 85025; 93005; 99285

== ENCOUNTER 2025-04-12 12:57 | Outpatient (CLI) | payer MEDICAID, SELFPAY ==
--- NOTE | 2025-04-12 13:15 | MR_ITS ---
WS: [id number] MRI HEAD WITHOUT AND WITH GADOLINIUM WITH PITUITARY PROTOCOL TECHNIQUE: Sagittal T1, T2 axial, T2 axial FLAIR, axial susceptibility weighted imaging, axial diffusion weighted images, and coronal T2 images were obtained. Pre and post-T1 axial and post T1 coronal images. ADC and FSPGR images. CLINICAL INFORMATION: Concern for pituitary adenoma on prior mri COMPARISON: MRI 12/31/2024 FINDINGS: 3 mm focus of hypoenhancement in the midline pituitary probably represents a small incidental pars intermedia cyst based on midline location between the neurohypophysis and adenohypophysis. Microadenoma is an additional consideration. Recommend correlation with pituitary function studies. No evidence of restricted diffusion to suggest acute ischemia. No suspicious intracranial signal abnormalities. Normal posterior fossa. Normal vascular flow voids at the skull base. No extra-axial fluid collections. No evidence of mass or mass effect. No hemosiderin on the susceptibly weighted images. Normal optic chiasm and pituitary infundibulum. MR/MR pituitary wo/w con* [id number] IMPRESSION: 3 mm focus of hypoenhancement in the midline pituitary probably represents a sm all incidental pars intermedia cyst based on midline location between the neuro hypophysis and adenohypophysis. Microadenoma is an additional consideration. Re commend correlation with pituitary function studies.
[2025-04-12] MEDS: gadobenate dimeglumine 20 mL vial IV (13:49)
== END 2025-04-12 12:58 | disposition home or self-care (01) ==
LOC: RAD 12:57
PROVIDERS: PCP Family Medicine; Visit Provider Nurse Practitioner Family
DX: E23.7 Disorder of pituitary gland, unspecified (principal)
CPT/HCPCS: 70553; A9577

== ENCOUNTER → 2025-04-13 17:24 | Outpatient (BNVA) | payer MEDICAID, SELFPAY | PROVIDERS: PCP Family Medicine | DX: R09.81 Nasal congestion (principal) | CPT/HCPCS: 87400; 87426 ==